=== PATIENT | female | born 1955 | race Two or more races ===

== ENCOUNTER → 2016-09-13 | Outpatient (CLI) | payer MEDICARE, OTHER ==
[~2016-09-13] MED LIST: ESTR1TAB36 PO; GLIM2TAB33 PO; HYDR200T PO; LEVO150T10 PO; METF-312 PO; METF-316 PO; PREG100C PO; TRAV0.00 EACHEYE
[2016-09-13 10:50] LABS: Basophils # (auto) 0 uL; Basophils % (auto) 0.7 % (0.0-2.0); DEFINITIVE VIEW TRANSMISSION; Eosinophils # (auto) 0.1 uL; Eosinophils % (auto) 1.5 % (0.0-7.0); Hematocrit 37.1 % (36.0-46.0); Hemoglobin 11.7 g/dL (12.2-16.2); Lymphocytes % (auto) 39.1 % (10.0-50.0); Mean Corpuscular Hemoglobin 21.8 pg (28.0-32.0); Mean Corpuscular Hgb Conc. 31.5 g/dL (32.0-36.0); Mean Corpuscular Volume 69.2 fL (80.0-100.0); Mean Platelet Volume 9.3 fL (7.4-10.4); Monocytes # (auto) 0.4 uL; Monocytes % (auto) 7.5 % (0.0-12.0); Neutrophils # (auto) 2.7 uL; Neutrophils % (auto) 51.2 % (37.0-80.0); Platelet Count (auto) 296 10^3/uL (140-450); White Blood Cell 5.2 10^3/uL (4.4-10.8)
[2016-09-13 11:00] LABS: Albumin 4.1 g/dL (3.4-5.0); BUN/Creatinine Ratio 16.9; Bilirubin, Total 0.6 mg/dL (0.2-1.0); Calcium 9.1 mg/dL (8.5-10.1); Potassium 3.8 mmol/L (3.5-5.1); Total Protein 7.8 g/dL (6.4-8.2)
[2016-09-13 11:11] LABS: Temperature: 21.6 C (20.0-25.0)
[2016-09-13 11:43] LABS: Anisocytosis Slight; Hypochromia Slight; Ovalocytes FEW; Platelet Estimate Adequate
== END | disposition home or self-care (01) ==
LOC: LAB 10:05
DX: E11.65 Type 2 diabetes mellitus with hyperglycemia (principal)
CPT/HCPCS: 36415; 80053; 82728; 82746; 83036; 83540; 83550; 85025; 85049

== ENCOUNTER → 2016-12-09 | Day surgery (SDC) | payer MEDICARE, MEDICAID ==
[2016-12-06 11:00] LABS: Basophils # (auto) 0 uL; DEFINITIVE VIEW TRANSMISSION; Eosinophils # (auto) 0.1 uL; Hematocrit 44.1 % (36.0-46.0); Lymphocytes # (auto) 1.9 uL; Monocytes # (auto) 0.4 uL; Neutrophils # (auto) 2.9 uL
[2016-12-06 11:15] LABS: INR 0.94 (0.9-1.15); Partial Thromboplastin Time 26.6 sec (22.64-33.71); Prothrombin Time 10.1 sec (9.37-12.3)
[2016-12-06 11:18] LABS: Basophils % (auto) 0.6 % (0.0-2.0); Eosinophils % (auto) 1.8 % (0.0-7.0); Lymphocytes % (auto) 35.5 % (10.0-50.0); Mean Corpuscular Volume 82.4 fL (80.0-100.0); Neutrophils % (auto) 54.1 % (37.0-80.0); Platelet Count (auto) 242 10^3/uL (140-450); White Blood Cell 5.4 10^3/uL (4.4-10.8)
[2016-12-06 11:32] LABS: Platelet Estimate Adequate
[2016-12-06 11:33] LABS: Anisocytosis Slight; Ovalocytes FEW
[~2016-12-09] VITALS: Ht 170.2 cm; Wt 88.0 kg
[~2016-12-09] MED LIST changes: +ALBUAER3 IN; +ASPI-231 PO; +ATOR10TA52 PO; -ESTR1TAB36 PO; +FOLI1TAB6 PO; +GABA300C8 PO; -GLIM2TAB33 PO; +INSUINJ49 SC; +LIDOCAINE VISCOUS 2% 15ML UD ONE; -METF-312 PO; -METF-316 PO; +METH25IN14 SUBCUT; +OMEP20CA5 PO; -PREG100C PO; +SODIUM CHLORIDE LOCK 10 ML ONE; +diphenhdrAMINE HCL 50 MG/1 ML VL ONE
[2016-12-09] MEDS: MIDAZOLAM HCL 5 MG/ML-1ML VIAL ONE ×3 (10:38→10:50)
[2016-12-09] MEDS: fentaNYL CITRATE 100 MCG/2 ML VL ONE ×3 (10:38→10:50)
[2016-12-09 11:50] VITALS: BP 139/76
== END | disposition home or self-care (01) ==
LOC: GI 09:06
PROVIDERS: ATTEND Internal Medicine Gastroenterology
DX: K63.5 Polyp of colon (principal); K64.8 Other hemorrhoids; K29.50 Unspecified chronic gastritis without bleeding; K44.9 Diaphragmatic hernia without obstruction or gangrene; J45.909 Unspecified asthma, uncomplicated; J40 Bronchitis, not specified as acute or chronic; E11.9 Type 2 diabetes mellitus without complications; F32.9 Major depressive disorder, single episode, unspecified; Z90.710 Acquired absence of both cervix and uterus; Z87.891 Personal history of nicotine dependence; Z90.49 Acquired absence of other specified parts of digestive tract
CPT/HCPCS: 36415; 43239; 45380; 85025; 85610; 85730; J2250

== ENCOUNTER → 2016-12-19 | Outpatient (CLI) | payer MEDICARE, MEDICAID ==
[~2016-12-19] MED LIST changes: -LIDOCAINE VISCOUS 2% 15ML UD ONE; -SODIUM CHLORIDE LOCK 10 ML ONE; -diphenhdrAMINE HCL 50 MG/1 ML VL ONE
[2016-12-19 07:39] LABS: Basophils # (auto) 0 uL; Basophils % (auto) 0.6 % (0.0-2.0); DEFINITIVE VIEW TRANSMISSION; Eosinophils # (auto) 0.1 uL; Eosinophils % (auto) 2.1 % (0.0-7.0); Hemoglobin 15.2 g/dL (12.2-16.2); Lymphocytes # (auto) 1.8 uL; Lymphocytes % (auto) 31.8 % (10.0-50.0); Mean Corpuscular Hemoglobin 28.2 pg (28.0-32.0); Mean Corpuscular Hgb Conc. 33.8 g/dL (32.0-36.0); Mean Corpuscular Volume 83.4 fL (80.0-100.0); Mean Platelet Volume 9.9 fL (7.4-10.4); Monocytes # (auto) 0.5 uL; Neutrophils # (auto) 3.3 uL; Neutrophils % (auto) 57.5 % (37.0-80.0); Platelet Count (auto) 229 10^3/uL (140-450); White Blood Cell 5.8 10^3/uL (4.4-10.8)
[2016-12-19 07:56] LABS: BUN/Creatinine Ratio 18.8; Bilirubin, Total 0.9 mg/dL (0.2-1.0); Calcium 8.9 mg/dL (8.5-10.1); Potassium 3.6 mmol/L (3.5-5.1); Total Protein 7.7 g/dL (6.4-8.2)
[2016-12-19 08:02] LABS: Red Cell Distribution Width 20.8 % (11.6-16.0)
[2016-12-19 08:18] LABS: Anisocytosis Slight; Platelet Estimate Adequate
== END | disposition home or self-care (01) ==
LOC: LAB 06:51
DX: D64.9 Anemia, unspecified (principal); E11.65 Type 2 diabetes mellitus with hyperglycemia; E03.9 Hypothyroidism, unspecified
CPT/HCPCS: 36415; 80053; 80061; 82043; 82570; 82728; 83036; 84439; 84443; 84481; 85025

== ENCOUNTER → 2017-01-02 | Outpatient (CLI) | payer MEDICARE | END | disposition home or self-care (01) | LOC: LAB 09:04 | PROVIDERS: ATTEND Internal Medicine Gastroenterology | DX: D12.6 Benign neoplasm of colon, unspecified (principal); Z80.0 Family history of malignant neoplasm of digestive organs ==

== ENCOUNTER → 2017-03-14 | Outpatient (CLI) | payer MEDICARE ==
[~2017-03-14] MED LIST changes: +GABA-497 PO; -GABA300C8 PO; -OMEP20CA5 PO; +OMEP20CA74 PO
[2017-03-14 08:46] LABS: Albumin 3.9 g/dL (3.4-5.0); BUN/Creatinine Ratio 12.9; Bilirubin, Total 0.8 mg/dL (0.2-1.0); Calcium 8.8 mg/dL (8.5-10.1); Total Protein 7.7 g/dL (6.4-8.2)
[2017-03-14 09:16] LABS: Urine Protein/Creatinine Ratio 0.19
== END | disposition home or self-care (01) ==
LOC: LAB 07:48
DX: E11.65 Type 2 diabetes mellitus with hyperglycemia (principal)
CPT/HCPCS: 36415; 80053; 82043; 82570; 83036; 84156

== ENCOUNTER → 2017-06-05 | Outpatient (CLI) | payer MEDICARE, MEDICAID ==
[2017-06-05 16:44] LABS: BUN/Creatinine Ratio 9.4; Calcium 8.5 mg/dL (8.5-10.1); Potassium 3.4 mmol/L (3.5-5.1)
[2017-06-05 17:06] LABS: Basophils # (auto) 0 uL; Basophils % (auto) 0.7 % (0.0-2.0); Eosinophils # (auto) 0.1 uL; Eosinophils % (auto) 0.9 % (0.0-7.0); Hematocrit 44.3 % (36.0-46.0); Hemoglobin 15.5 g/dL (12.2-16.2); Lymphocytes # (auto) 2.4 uL; Lymphocytes % (auto) 36.7 % (10.0-50.0); Mean Corpuscular Volume 88.7 fL (80.0-100.0); Mean Platelet Volume 9.1 fL (6.9-10.8); Monocytes # (auto) 0.5 uL; Monocytes % (auto) 7.4 % (0.0-12.0); Neutrophils # (auto) 3.6 uL; Neutrophils % (auto) 54.3 % (37.0-80.0); Nucleated Red Blood Cells % 0.1 %; Platelet Count (auto) 201 10^3/uL (140-450); White Blood Cell 6.6 10^3/uL (4.4-10.8)
== END | disposition home or self-care (01) ==
LOC: LAB 15:52
DX: K63.5 Polyp of colon (principal); E11.9 Type 2 diabetes mellitus without complications
CPT/HCPCS: 36415; 80048; 85025

== ENCOUNTER → 2017-06-20 | Outpatient (CLI) | payer MEDICARE, MEDICAID ==
[2017-06-20 08:00] LABS: Basophils # (auto) 0 uL; Basophils % (auto) 0.8 % (0.0-2.0); Eosinophils # (auto) 0.1 uL; Eosinophils % (auto) 1.6 % (0.0-7.0); Hematocrit 45.4 % (36.0-46.0); Hemoglobin 15.8 g/dL (12.2-16.2); Lymphocytes % (auto) 33.5 % (10.0-50.0); Mean Corpuscular Hgb Conc. 34.7 g/dL (32.0-36.0); Mean Corpuscular Volume 89.3 fL (80.0-100.0); Mean Platelet Volume 8.9 fL (6.9-10.8); Monocytes # (auto) 0.4 uL; Monocytes % (auto) 7.3 % (0.0-12.0); Neutrophils # (auto) 3.3 uL; Neutrophils % (auto) 56.8 % (37.0-80.0); Nucleated Red Blood Cells % 0.1 %; Platelet Count (auto) 194 10^3/uL (140-450); White Blood Cell 5.9 10^3/uL (4.4-10.8)
[2017-06-20 08:28] LABS: BUN/Creatinine Ratio 13.2; Bilirubin, Total 1.4 mg/dL (0.2-1.0); Calcium 8.7 mg/dL (8.5-10.1); Potassium 3.9 mmol/L (3.5-5.1)
== END | disposition home or self-care (01) ==
LOC: LAB 07:27
DX: E11.65 Type 2 diabetes mellitus with hyperglycemia (principal); E03.9 Hypothyroidism, unspecified; D64.9 Anemia, unspecified
CPT/HCPCS: 36415; 80053; 80061; 82043; 82570; 82728; 83036; 84439; 84443; 85025

== ENCOUNTER → 2017-10-16 | Outpatient (CLI) | payer MEDICARE, MEDICAID ==
[~2017-10-16] MED LIST changes: -GABA-497 PO; +GABA300C10 PO; +METH2.5T3 PO
[2017-10-16 12:30] LABS: Basophils # (auto) 0.1 uL; Eosinophils # (auto) 0.1 uL; Eosinophils % (auto) 1.9 % (0.0-7.0); Hematocrit 45.8 % (36.0-46.0); Hemoglobin 15.6 g/dL (12.2-16.2); Lymphocytes # (auto) 2.6 uL; Lymphocytes % (auto) 34.3 % (10.0-50.0); Mean Corpuscular Hemoglobin 29.9 pg (28.0-32.0); Mean Corpuscular Hgb Conc. 33.9 g/dL (32.0-36.0); Monocytes # (auto) 0.5 uL; Monocytes % (auto) 7.1 % (0.0-12.0); Neutrophils # (auto) 4.2 uL; Neutrophils % (auto) 55.7 % (37.0-80.0); Nucleated Red Blood Cells % 0.1 %; Platelet Count (auto) 247 10^3/uL (140-450); Red Blood Cells 5.21 10^6/uL (4.0-5.20); Red Cell Distribution Width 14.9 % (11.8-14.3); White Blood Cell 7.6 10^3/uL (4.4-10.8)
== END | disposition home or self-care (01) ==
LOC: LAB 12:18
PROVIDERS: ATTEND Internal Medicine
DX: E11.9 Type 2 diabetes mellitus without complications (principal); M06.9 Rheumatoid arthritis, unspecified
CPT/HCPCS: 36415; 85025

== ENCOUNTER 2017-11-08 12:00 | Inpatient (IN) | payer MEDICARE, MEDICAID ==
[~2017-11-08] VITALS: Ht 170.2 cm; Wt 82.6 kg
[~2017-11-08 12:00] MED LIST changes: -METH2.5T3 PO
[2017-11-08 12:29] LABS: Basophils # (auto) 0 uL; Basophils % (auto) 0.4 % (0.0-2.0); Eosinophils # (auto) 0.1 uL; Eosinophils % (auto) 0.8 % (0.0-7.0); Hematocrit 50.8 % (36.0-46.0); Hemoglobin 17.4 g/dL (12.2-16.2); Lymphocytes # (auto) 1.6 uL; Lymphocytes % (auto) 13.8 % (10.0-50.0); Mean Corpuscular Hemoglobin 30.3 pg (28.0-32.0); Mean Corpuscular Hgb Conc. 34.2 g/dL (32.0-36.0); Mean Corpuscular Volume 88.6 fL (80.0-100.0); Monocytes # (auto) 0.4 uL; Monocytes % (auto) 3.5 % (0.0-12.0); Neutrophils # (auto) 9.4 uL; Neutrophils % (auto) 81.5 % (37.0-80.0); Nucleated Red Blood Cells % 0.1 %; Platelet Count (auto) 254 10^3/uL (140-450); Red Blood Cells 5.73 10^6/uL (4.0-5.20); Red Cell Distribution Width 15.2 % (11.8-14.3); White Blood Cell 11.5 10^3/uL (4.4-10.8)
[2017-11-08 12:51] LABS: INR 0.93 (0.9-1.15); Partial Thromboplastin Time 25.5 sec (22.64-33.71); Prothrombin Time 10.1 sec (9.37-12.3)
[2017-11-08 12:55] LABS: Alanine Aminotransferase 42 U/L (13-56); Albumin 4.3 g/dL (3.4-5.0); Alkaline Phosphatase 114 U/L (45-117); Anion Gap 12 (5-15); Aspartate Aminotransferase 35 U/L (15-37); BUN/Creatinine Ratio 11.5; Bilirubin, Total 1.6 mg/dL (0.2-1.0); Blood Urea Nitrogen 10 mg/dL (7-18); Calcium 9.3 mg/dL (8.5-10.1); Carbon Dioxide 20 mmol/L (21-32); Chloride 104 mmol/L (98-107); GFR African American 84 mL/min; GFR Non-African American 70 mL/min; Glucose 151 mg/dL (74-106); Magnesium 2.3 mg/dL (1.6-2.6); Potassium 4.1 mmol/L (3.5-5.1); Sodium 136 mmol/L (136-145); Total Protein 9.4 g/dL (6.4-8.2)
[2017-11-08 12:59] LABS: Amylase 94 U/L (25-115); Lipase 297 U/L (73-393)
[2017-11-08 14:16] LABS: Urine Bacteria FEW /hpf (None Seen); Urine Blood Negative /uL (Negative); Urine Hyaline Cast MOD /lpf (0 - 2); Urine Mucus FEW (None Seen); Urine Specific Gravity 1.012 (1.001-1.035); Urine WBC 14 /hpf (0 - 5)
[2017-11-08] MEDS ORDERED: LEVOFLOXACIN 500MG 100 ML IV ONE (16:30)
[2017-11-08] MEDS ORDERED: ACETAMINOPHEN 325 MG TAB PO PRN (16:45)
[2017-11-08] MEDS ORDERED: TEMAZEPAM 15 MG CAP PO PRN (16:45)
[2017-11-08] MEDS ORDERED: HYDROcodone-ACET 5/325MG TAB PO PRN (16:45)
[2017-11-08] MEDS ORDERED: MORPHINE SULFATE 4 MG/ML SYR/VIAL IV PRN ×2 (16:45)
[2017-11-08] MEDS ORDERED: DEXTROSE (50%) 50ML SYRG IV PRN (16:45)
[2017-11-08] MEDS ORDERED: ONDANSETRON HCL 4 MG/2 ML VIAL IV PRN (16:45)
[2017-11-08] MEDS ORDERED: FAMOTIDINE (10MG/ML) 2ML VL IV ONE (16:45)
[2017-11-08] MEDS ORDERED: NITROGLYCERIN 0.4 MG SL TAB SL PRN (16:45)
[2017-11-08] MEDS ORDERED: metroNIDAZOLE 500MG/100ML 100 ML IV ONE (17:00)
[2017-11-08] MEDS: ACCU-CHEK COMFORT CURVE STRIP VI SCH ×2 (17:26→23:12)
[2017-11-08] MEDS: SODIUM CHLORIDE 0.9% 1,000 ML IV SCH (17:48)
[2017-11-08] MEDS: InsuLIN REG 1unit/0.01ml Soln (100units/ml) SC SCH ×2 (18:00→22:00)
[2017-11-08] MEDS: INSULIN 70/30 1unit/0.01ml Susp (100units/ml) SC SCH (20:42)
[2017-11-08 22:00] VITALS: BP 116/68
[2017-11-08] MEDS ORDERED: ATORVASTATIN 20 MG TAB PO SCH (22:00)
[2017-11-08] MEDS ORDERED: AMITRIPTYLINE HCL 25 MG TAB PO SCH (22:00)
[2017-11-08] MEDS ORDERED: HYDROXYCHLOROQUINE SULFATE 200 MG TAB PO SCH (22:00)
[2017-11-08] MEDS: metroNIDAZOLE 500MG/100ML 100 ML IV SCH (23:12)
[2017-11-08] MEDS: GABAPENTIN 300 MG CAP PO SCH (23:18)
[2017-11-09] MEDS: SODIUM CHLORIDE 0.9% 1,000 ML IV SCH ×2 (01:28→09:25)
[2017-11-09 05:00] VITALS: BP 109/64
[2017-11-09] MEDS: GABAPENTIN 300 MG CAP PO SCH (05:49)
[2017-11-09] MEDS: metroNIDAZOLE 500MG/100ML 100 ML IV SCH (05:49)
[2017-11-09] MEDS: ACCU-CHEK COMFORT CURVE STRIP VI SCH ×2 (06:09→11:30)
[2017-11-09] MEDS: InsuLIN REG 1unit/0.01ml Soln (100units/ml) SC SCH ×2 (06:09→11:30)
[2017-11-09 06:21] LABS: Basophils # (auto) 0 uL; Basophils % (auto) 0.5 % (0.0-2.0); Eosinophils # (auto) 0.1 uL; Eosinophils % (auto) 1.3 % (0.0-7.0); Hematocrit 43.9 % (36.0-46.0); Hemoglobin 14.9 g/dL (12.2-16.2); Lymphocytes # (auto) 1.2 uL; Lymphocytes % (auto) 19.1 % (10.0-50.0); Mean Corpuscular Hemoglobin 30.3 pg (28.0-32.0); Mean Corpuscular Hgb Conc. 33.9 g/dL (32.0-36.0); Mean Corpuscular Volume 89.4 fL (80.0-100.0); Monocytes # (auto) 0.4 uL; Monocytes % (auto) 6.5 % (0.0-12.0); Neutrophils # (auto) 4.7 uL; Neutrophils % (auto) 72.6 % (37.0-80.0); Nucleated Red Blood Cells % 0.1 %; Platelet Count (auto) 194 10^3/uL (140-450); Red Blood Cells 4.91 10^6/uL (4.0-5.20); Red Cell Distribution Width 14.9 % (11.8-14.3); White Blood Cell 6.5 10^3/uL (4.4-10.8)
[2017-11-09 06:43] LABS: Albumin 3.5 g/dL (3.4-5.0); BUN/Creatinine Ratio 14.9; Calcium 8.4 mg/dL (8.5-10.1); Potassium 3.6 mmol/L (3.5-5.1); Total Protein 7.4 g/dL (6.4-8.2)
[2017-11-09] MEDS ORDERED: LEVOTHYROXINE SODIUM 100 MCG TAB PO SCH (07:00)
[2017-11-09 07:38] VITALS: BP 107/57
[2017-11-09] MEDS: INSULIN 70/30 1unit/0.01ml Susp (100units/ml) SC SCH (08:07)
[2017-11-09] MEDS ORDERED: PANTOPRAZOLE 40 MG/10 ML VIAL IV SCH (10:00)
[2017-11-09] MEDS ORDERED: ASPirin-EC 81 mg tab PO SCH (10:00)
[2017-11-09] MEDS ORDERED: TRAVATAN Z 0.004% OPHTHALMIC SOLN EACHEYE SCH (10:00)
[2017-11-09] MEDS ORDERED: HYDROXYCHLOROQUINE SULFATE 200 MG TAB PO SCH (10:00)
[2017-11-09] MEDS ORDERED: MULTIPLE VITAMIN TAB PO SCH (10:00)
[2017-11-09] MEDS ORDERED: LEVOFLOXACIN 500MG 100 ML IV SCH (10:00)
[2017-11-09] MEDS ORDERED: FAMOTIDINE (10MG/ML) 2ML VL IV SCH (10:00)
[2017-11-09] MEDS ORDERED: FOLIC ACID 1 MG TAB PO SCH (10:00)
[2017-11-09] MEDS ORDERED: CALCIUM W/VIT D (600MG/400IU) TAB PO SCH (10:00)
[2017-11-09 11:33] VITALS: BP 113/64
[2017-11-09 15:49] VITALS: BP 113/64
[2017-11-09 16:29] VITALS: BP 118/68
[2017-11-14] MEDS ORDERED: METHOTREXATE 2.5 MG TAB PO SCH (10:00)
[2017-12-05] MEDS ORDERED: TRAV0.00 EACHEYE (12:52)
[2017-12-05] MEDS ORDERED: METH2.5T3 PO (12:52)
== END 2017-11-09 16:40 | disposition home or self-care (01) | DRG 690 ==
LOC: ER 12:00 → TELE 12:01 → TELE-EAST 18:46
PROVIDERS: ADMIT Internal Medicine; ATTEND Internal Medicine
DX: N39.0 Urinary tract infection, site not specified (principal); E11.21 Type 2 diabetes mellitus with diabetic nephropathy; D75.1 Secondary polycythemia; K76.0 Fatty (change of) liver, not elsewhere classified; E11.22 Type 2 diabetes mellitus with diabetic chronic kidney disease; E86.0 Dehydration; E03.9 Hypothyroidism, unspecified; I12.9 Hypertensive chronic kidney disease with stage 1 through stage 4 chronic kidney disease, or unspecified chronic kidney disease; D35.02 Benign neoplasm of left adrenal gland; J45.909 Unspecified asthma, uncomplicated; K08.89 Other specified disorders of teeth and supporting structures; M06.9 Rheumatoid arthritis, unspecified; N18.2 Chronic kidney disease, stage 2 (mild); N99.3 Prolapse of vaginal vault after hysterectomy; Z80.0 Family history of malignant neoplasm of digestive organs; Z82.49 Family history of ischemic heart disease and other diseases of the circulatory system; Z85.038 Personal history of other malignant neoplasm of large intestine; Z87.891 Personal history of nicotine dependence; Z90.49 Acquired absence of other specified parts of digestive tract; Z93.2 Ileostomy status; Z93.3 Colostomy status; Z88.0 Allergy status to penicillin; Z88.2 Allergy status to sulfonamides; Z88.8 Allergy status to other drugs, medicaments and biological substances; Z88.5 Allergy status to narcotic agent; G43.909 Migraine, unspecified, not intractable, without status migrainosus
CPT/HCPCS: 36415; 70450; 71045; 74176; 80053; 81001; 82150; 82962; 83036; 83605; 83690; 83735; 84443; 84484; 85025; 85610; 85730; 87040; 87086; 93005; 93306; 96365; 96375; C9113; J1815; J1956; J2405; J3490

== ENCOUNTER 2017-12-11 06:09 | Day surgery (SDC) | payer MEDICARE, MEDICAID ==
[2017-12-05 11:57] LABS: Basophils # (auto) 0 uL; Basophils % (auto) 0.9 % (0.0-2.0); Eosinophils # (auto) 0.1 uL; Eosinophils % (auto) 1.2 % (0.0-7.0); Hematocrit 43.8 % (36.0-46.0); Lymphocytes # (auto) 1.8 uL; Lymphocytes % (auto) 33.3 % (10.0-50.0); Mean Corpuscular Hemoglobin 30.3 pg (28.0-32.0); Mean Corpuscular Hgb Conc. 34.2 g/dL (32.0-36.0); Mean Corpuscular Volume 88.8 fL (80.0-100.0); Monocytes # (auto) 0.4 uL; Monocytes % (auto) 7.2 % (0.0-12.0); Neutrophils # (auto) 3.2 uL; Neutrophils % (auto) 57.4 % (37.0-80.0); Nucleated Red Blood Cells % 0.1 %; Platelet Count (auto) 208 10^3/uL (140-450); Red Blood Cells 4.93 10^6/uL (4.0-5.20); Red Cell Distribution Width 14.9 % (11.8-14.3); White Blood Cell 5.5 10^3/uL (4.4-10.8)
[2017-12-05 12:06] LABS: INR 0.95 (0.9-1.15); Partial Thromboplastin Time 26.2 sec (22.64-33.71); Prothrombin Time 10.3 sec (9.37-12.3); Urine Bacteria NONE SEEN /hpf (None Seen); Urine Blood Negative /uL (Negative); Urine WBC 1 /hpf (0 - 5)
[2017-12-05 12:15] LABS: BUN/Creatinine Ratio 15.2; Calcium 8.9 mg/dL (8.5-10.1); Potassium 3.9 mmol/L (3.5-5.1)
[2017-12-05 12:22] LABS: Bilirubin, Total 1.2 mg/dL (0.2-1.0); Total Protein 7.9 g/dL (6.4-8.2)
[~2017-12-11] VITALS: Ht 170.2 cm; Wt 84.4 kg
[~2017-12-11 06:09] MED LIST changes: +METH2.5T3 PO; -METH25IN14 SUBCUT
[2017-12-11] MEDS ORDERED: LIDOCAINE W/ EPINEPHRINE 2% INJ 20ML VIAL ONE (09:03)
[2017-12-11] MEDS ORDERED: COCAINE HCL 4% TOP SOL 4ML TOP ONE (09:04)
[2017-12-11] MEDS ORDERED: PROPOFOL 10 MG/ML 20 ML IV ONE (09:08)
[2017-12-11] MEDS ORDERED: MIDAZOLAM HCL 1MG/1ML-2 ML VIAL ONE (09:08)
[2017-12-11] MEDS ORDERED: MEPERIDINE HCL (50 MG/ML) 1 ML VIAL ONE (09:08)
[2017-12-11] MEDS ORDERED: ONDANSETRON HCL 4 MG/2 ML VIAL ONE (09:08)
[2017-12-11] MEDS ORDERED: fentaNYL CITRATE 100 MCG/2 ML VL ONE (09:08)
[2017-12-11] MEDS ORDERED: ROCURONIUM 10MG/ML 10ML VIAL IV ONE (09:08)
[2017-12-11] MEDS ORDERED: SUCCINYLCHOLINE CHLORIDE 20 MG/ML 10ML VIAL IV ONE (09:20)
[2017-12-11] MEDS ORDERED: LEVOFLOXACIN 500MG 0 ML IV ONE (09:20)
[2017-12-11] MEDS ORDERED: GLYCOPYRROLATE 0.2 MG/ML 1ML VIAL ONE (09:52)
[2017-12-11] MEDS ORDERED: NEOSTIGMINE 1 MG/ML INJ (10mg/10ML VIAL) ONE (09:52)
[2017-12-11] MEDS ORDERED: METOCLOPRAMIDE HCL 5MG/ml INJ 2ml VIAL IV ONE (10:15)
[2017-12-11] MEDS ORDERED: ACCU-CHEK COMFORT CURVE STRIP VI ONE (10:15)
[2017-12-11] MEDS ORDERED: MORPHINE SULFATE 4 MG/ML SYR/VIAL IV PRN (10:15)
[2017-12-11] MEDS ORDERED: MORPHINE SULFATE 8mg/ml INJ SDV IV PRN (11:00)
[2017-12-11 11:46] VITALS: BP 138/53
== END 2017-12-11 10:46 | disposition home or self-care (01) ==
LOC: SUR 06:09
PROVIDERS: ATTEND Otolaryngology
DX: J32.2 Chronic ethmoidal sinusitis (principal); Z88.5 Allergy status to narcotic agent; Z88.0 Allergy status to penicillin; Z88.2 Allergy status to sulfonamides; Z88.1 Allergy status to other antibiotic agents; E66.9 Obesity, unspecified; J45.909 Unspecified asthma, uncomplicated; Z90.710 Acquired absence of both cervix and uterus; M06.9 Rheumatoid arthritis, unspecified; M19.90 Unspecified osteoarthritis, unspecified site; F32.9 Major depressive disorder, single episode, unspecified; Z87.891 Personal history of nicotine dependence; Z90.49 Acquired absence of other specified parts of digestive tract; E89.0 Postprocedural hypothyroidism; D64.9 Anemia, unspecified; I49.9 Cardiac arrhythmia, unspecified; E11.22 Type 2 diabetes mellitus with diabetic chronic kidney disease; I12.9 Hypertensive chronic kidney disease with stage 1 through stage 4 chronic kidney disease, or unspecified chronic kidney disease; N18.2 Chronic kidney disease, stage 2 (mild)
CPT/HCPCS: 31254; 31267; 36415; 80053; 81001; 82962; 85025; 85610; 85730; 88305; 88312; 88313; J0330; J2175; J2250; J2270; J2405; J2704; J3010; J1956

== ENCOUNTER → 2018-07-02 | Outpatient (CLI) | payer MEDICARE, MEDICAID ==
[~2018-07-02] MED LIST changes: +HYDR-4441 PO; -HYDR200T PO
[2018-07-02 08:37] LABS: Urine Bacteria FEW /hpf (None Seen); Urine Blood Negative /uL (Negative); Urine Mucus FEW (None Seen); Urine Specific Gravity 1.011 (1.001-1.035); Urine WBC 3 /hpf (0 - 5)
[2018-07-02 09:00] LABS: Calcium 8.6 mg/dL (8.5-10.1); Potassium 3.7 mmol/L (3.5-5.1)
[2018-07-02 09:07] LABS: Albumin 3.8 g/dL (3.4-5.0); BUN/Creatinine Ratio 11.4; Bilirubin, Total 1.1 mg/dL (0.2-1.0); CRP High Sensitivity 0.04 mg/dL (< 0.3); Total Protein 7.9 g/dL (6.4-8.2)
[2018-07-02 09:42] LABS: Free T4 (Free Thyroxine) 1.09 ng/dL (0.89-1.76)
[2018-07-02 10:17] LABS: Basophils # (auto) 0 uL; Basophils % (auto) 0.9 % (0.0-2.0); Eosinophils # (auto) 0.1 uL; Eosinophils % (auto) 1.3 % (0.0-7.0); Hematocrit 45.6 % (36.0-46.0); Hemoglobin 15.8 g/dL (12.2-16.2); Lymphocytes # (auto) 1.6 uL; Lymphocytes % (auto) 29.5 % (10.0-50.0); Mean Corpuscular Hemoglobin 32.2 pg (28.0-32.0); Mean Corpuscular Hgb Conc. 34.6 g/dL (32.0-36.0); Monocytes # (auto) 0.4 uL; Monocytes % (auto) 8.3 % (0.0-12.0); Neutrophils # (auto) 3.2 uL; Nucleated Red Blood Cells % 0.1 %; Platelet Count (auto) 193 10^3/uL (140-450); Red Blood Cells 4.91 10^6/uL (4.0-5.20); Red Cell Distribution Width 14.1 % (11.8-14.3); White Blood Cell 5.4 10^3/uL (4.4-10.8)
== END | disposition home or self-care (01) ==
LOC: LAB 07:59
PROVIDERS: ATTEND Internal Medicine
DX: E11.65 Type 2 diabetes mellitus with hyperglycemia (principal); M06.9 Rheumatoid arthritis, unspecified; E11.40 Type 2 diabetes mellitus with diabetic neuropathy, unspecified; I10 Essential (primary) hypertension
CPT/HCPCS: 36415; 80053; 80061; 81001; 82043; 82607; 83036; 84439; 84443; 85025; 85652; 86141

== ENCOUNTER → 2018-12-07 | Outpatient (CLI) | payer MEDICARE, MEDICAID ==
[2018-12-07 11:41] LABS: Basophils # (auto) 0.1 uL; Basophils % (auto) 0.9 % (0.0-2.0); Eosinophils # (auto) 0.1 uL; Eosinophils % (auto) 1.1 % (0.0-7.0); Hematocrit 45.8 % (36.0-46.0); Hemoglobin 15.6 g/dL (12.2-16.2); Lymphocytes # (auto) 1.8 uL; Lymphocytes % (auto) 24.2 % (10.0-50.0); Mean Corpuscular Hemoglobin 31.9 pg (28.0-32.0); Mean Corpuscular Hgb Conc. 34.1 g/dL (32.0-36.0); Mean Corpuscular Volume 93.6 fL (80.0-100.0); Monocytes # (auto) 0.6 uL; Monocytes % (auto) 7.5 % (0.0-12.0); Neutrophils % (auto) 66.3 % (37.0-80.0); Nucleated Red Blood Cells % 0.1 %; Platelet Count (auto) 214 10^3/uL (140-450); Red Blood Cells 4.89 10^6/uL (4.0-5.20); Red Cell Distribution Width 14.2 % (11.8-14.3); White Blood Cell 7.5 10^3/uL (4.4-10.8)
[2018-12-07 11:47] LABS: Urine Bacteria NONE SEEN /hpf (None Seen); Urine Blood Negative /uL (Negative); Urine Specific Gravity 1.008 (1.001-1.035); Urine WBC 1 /hpf (0 - 5)
[2018-12-07 12:08] LABS: INR 0.93 (0.9-1.15)
[2018-12-07 13:14] LABS: Potassium 3.9 mmol/L (3.5-5.1)
[2018-12-07 13:22] LABS: Albumin 4.1 g/dL (3.4-5.0); BUN/Creatinine Ratio 13.6; Bilirubin, Total 1.4 mg/dL (0.2-1.0); Calcium 8.8 mg/dL (8.5-10.1); Total Protein 8.1 g/dL (6.4-8.2)
== END | disposition home or self-care (01) ==
LOC: LAB 11:18
PROVIDERS: ATTEND Internal Medicine
DX: Z01.818 Encounter for other preprocedural examination (principal); I10 Essential (primary) hypertension; J45.909 Unspecified asthma, uncomplicated; M06.9 Rheumatoid arthritis, unspecified; Z98.890 Other specified postprocedural states
CPT/HCPCS: 36415; 80053; 81001; 84443; 85025; 85610; 85652

== ENCOUNTER → 2019-03-03 | Outpatient (CLI) | payer MEDICARE, MEDICAID | END | disposition home or self-care (01) | LOC: LAB 16:07 | PROVIDERS: ATTEND Internal Medicine | DX: N39.0 Urinary tract infection, site not specified (principal); E11.9 Type 2 diabetes mellitus without complications; R06.00 Dyspnea, unspecified | CPT/HCPCS: 87086; 87088; 87186 ==

== ENCOUNTER → 2019-03-12 | Outpatient (CLI) | payer MEDICARE, MEDICAID ==
[2019-03-12 14:00] LABS: Basophils # (auto) 0.1 uL; Basophils % (auto) 0.6 % (0.0-2.0); Eosinophils # (auto) 0 uL; Eosinophils % (auto) 0.2 % (0.0-7.0); Hematocrit 46.1 % (36.0-46.0); Hemoglobin 15.5 g/dL (12.2-16.2); Lymphocytes # (auto) 1.9 uL; Lymphocytes % (auto) 22.9 % (10.0-50.0); Mean Corpuscular Hemoglobin 31.3 pg (28.0-32.0); Mean Corpuscular Hgb Conc. 33.7 g/dL (32.0-36.0); Monocytes # (auto) 0.6 uL; Monocytes % (auto) 7.6 % (0.0-12.0); Neutrophils # (auto) 5.8 uL; Neutrophils % (auto) 68.7 % (37.0-80.0); Nucleated Red Blood Cells % 0.1 %; Platelet Count (auto) 190 10^3/uL (140-450); Red Blood Cells 4.95 10^6/uL (4.0-5.20); Red Cell Distribution Width 14.3 % (11.8-14.3); White Blood Cell 8.5 10^3/uL (4.4-10.8)
[2019-03-12 14:07] LABS: Potassium 3.4 mmol/L (3.5-5.1)
[2019-03-12 14:14] LABS: Albumin 3.7 g/dL (3.4-5.0); Bilirubin, Total 1.6 mg/dL (0.2-1.0); Calcium 8.6 mg/dL (8.5-10.1); Total Protein 7.7 g/dL (6.4-8.2)
[2019-03-12 14:31] LABS: Urine Bacteria FEW /hpf (None Seen); Urine Blood TRACE /uL (Negative); Urine Specific Gravity 1.003 (1.001-1.035); Urine WBC 199 /hpf (0 - 5)
== END | disposition home or self-care (01) ==
LOC: LAB 13:06
PROVIDERS: ATTEND Internal Medicine
DX: N39.0 Urinary tract infection, site not specified (principal)
CPT/HCPCS: 36415; 80053; 81001; 85025; 87086; 87088; 87186

== ENCOUNTER 2019-03-17 12:33 | Emergency (ER) | payer MEDICARE, MEDICAID ==
[~2019-03-17] VITALS: Ht 170.2 cm; Wt 85.7 kg
[2019-03-17 13:52] VITALS: BP 155/70
[2019-03-17 14:13] LABS: Urine Bacteria NONE SEEN /hpf (None Seen); Urine Blood Negative /uL (Negative); Urine Specific Gravity 1.004 (1.001-1.035); Urine WBC 1 /hpf (0 - 5)
== END 2019-03-17 15:46 | disposition home or self-care (01) ==
LOC: ER 12:33
DX: N39.0 Urinary tract infection, site not specified (principal); M51.36 Other intervertebral disc degeneration, lumbar region; J45.909 Unspecified asthma, uncomplicated; I10 Essential (primary) hypertension; Z87.891 Personal history of nicotine dependence; Z86.39 Personal history of other endocrine, nutritional and metabolic disease; Z88.0 Allergy status to penicillin; Z88.2 Allergy status to sulfonamides; Z88.6 Allergy status to analgesic agent; Z79.82 Long term (current) use of aspirin; Z79.4 Long term (current) use of insulin; Z79.899 Other long term (current) drug therapy
CPT/HCPCS: 74176; 81001

== ENCOUNTER → 2019-04-01 | Outpatient (CLI) | payer MEDICARE, MEDICAID ==
[~2019-04-01] MED LIST changes: +HYDR-4188 PO; -HYDR-4441 PO
[2019-04-01 14:10] LABS: Urine Bacteria MANY /hpf (None Seen); Urine Blood Negative /uL (Negative); Urine Mucus FEW (None Seen); Urine Specific Gravity 1.015 (1.001-1.035); Urine WBC 463 /hpf (0 - 5); Urine WBC Clumps PRESENT /hpf (None Seen)
== END | disposition home or self-care (01) ==
LOC: LAB 13:39
PROVIDERS: ATTEND Urology
DX: N39.0 Urinary tract infection, site not specified (principal)
CPT/HCPCS: 81001; 87086; 87088; 87186

== ENCOUNTER 2019-05-31 10:00 | Day surgery (SDC) | payer MEDICARE, MEDICAID ==
[2019-05-27 11:00] LABS: Basophils # (auto) 0.1 uL; Basophils % (auto) 1.1 % (0.0-2.0); Eosinophils # (auto) 0.1 uL; Eosinophils % (auto) 0.9 % (0.0-7.0); Hematocrit 43.6 % (36.0-46.0); Hemoglobin 15.3 g/dL (12.2-16.2); Lymphocytes # (auto) 1.7 uL; Lymphocytes % (auto) 26.5 % (10.0-50.0); Mean Corpuscular Hemoglobin 33.1 pg (28.0-32.0); Mean Corpuscular Volume 94.5 fL (80.0-100.0); Monocytes # (auto) 0.5 uL; Neutrophils # (auto) 4.2 uL; Neutrophils % (auto) 64.5 % (37.0-80.0); Nucleated Red Blood Cells % 0.1 %; Platelet Count (auto) 191 10^3/uL (140-450); Red Blood Cells 4.61 10^6/uL (4.0-5.20); Red Cell Distribution Width 14.5 % (11.8-14.3); White Blood Cell 6.6 10^3/uL (4.4-10.8)
[2019-05-27 11:11] LABS: INR 0.94 (0.9-1.15)
[2019-05-27 11:15] LABS: Urine Bacteria MOD /hpf (None Seen); Urine Blood Negative /uL (Negative); Urine Hyaline Cast FEW /lpf (0 - 2); Urine Mucus FEW (None Seen); Urine Specific Gravity 1.011 (1.001-1.035); Urine WBC 54 /hpf (0 - 5); Urine WBC Clumps PRESENT /hpf (None Seen)
[2019-05-27 11:34] LABS: Potassium 3.4 mmol/L (3.5-5.1)
[2019-05-27 11:42] LABS: Albumin 3.9 g/dL (3.4-5.0); BUN/Creatinine Ratio 12.3; Bilirubin, Total 1.2 mg/dL (0.2-1.0); Calcium 8.7 mg/dL (8.5-10.1); Total Protein 7.5 g/dL (6.4-8.2)
[~2019-05-31] VITALS: Ht 170.2 cm; Wt 88.0 kg
[~2019-05-31 10:00] MED LIST changes: -ALBUAER3 IN; +METH1INJ18 SC; -METH2.5T3 PO
[2019-05-31] MEDS ORDERED: LIDOCAINE W/ EPINEPHRINE 1% 20ML VIAL ONE (11:27)
[2019-05-31] MEDS ORDERED: CONJ ESTROGENS 0.625MG/GM VAG CRM 30GM PV ONE (11:42)
[2019-05-31] MEDS ORDERED: ONDANSETRON HCL 4 MG/2 ML VIAL IV PRN (12:00)
[2019-05-31] MEDS ORDERED: MORPHINE SULFATE 4 MG/ML SYR/VIAL IV PRN (12:00)
[2019-05-31] MEDS ORDERED: KETOROLAC TROMETH 30 MG/ML 1ML VIAL IV ONE (12:00)
[2019-05-31] MEDS ORDERED: ACCU-CHEK COMFORT CURVE STRIP VI ONE (12:00)
[2019-05-31] MEDS ORDERED: ePHEDrine SULFATE 50 MG/ML AMP IV PRN (12:00)
[2019-05-31] MEDS ORDERED: MIDAZOLAM HCL 1MG/1ML-2 ML VIAL IV PRN (12:00)
[2019-05-31] MEDS ORDERED: LABETALOL HCL 5 MG/ML 4ML SYRINGE IV PRN (12:00)
[2019-05-31] MEDS ORDERED: MEPERIDINE HCL (25 MG/ML) 1ML VIAL ONE (12:02)
[2019-05-31] MEDS ORDERED: fentaNYL CITRATE 100 MCG/2 ML VL ONE (12:02)
[2019-05-31] MEDS ORDERED: MIDAZOLAM HCL 1MG/1ML-2 ML VIAL ONE (12:03)
[2019-05-31] MEDS ORDERED: SUCCINYLCHOLINE CHLORIDE 20 MG/ML 10ML VIAL IV ONE (12:04)
[2019-05-31] MEDS ORDERED: PHENYLEPHRINE HCL 10 MG/ML VL IV ONE (12:04)
[2019-05-31] MEDS ORDERED: CIPROFLOXACIN 400MG/200ML 200 ML IV ONE (12:04)
[2019-05-31] MEDS ORDERED: DexAMETHasone SOD PHOS 10MG/1ML VIAL INJ ONE (12:39)
[2019-05-31] MEDS ORDERED: PROPOFOL 10 MG/ML 20 ML IV ONE (12:39)
[2019-05-31] MEDS: HYDROmorphone HCL 2 MG/ML VL IV PRN ×3 (13:45→14:05)
[2019-05-31 14:52] VITALS: BP 134/59
== END 2019-05-31 14:57 | disposition home or self-care (01) ==
LOC: SUR 10:00
PROVIDERS: ATTEND Urology
DX: N81.2 Incomplete uterovaginal prolapse (principal); E11.22 Type 2 diabetes mellitus with diabetic chronic kidney disease; I12.9 Hypertensive chronic kidney disease with stage 1 through stage 4 chronic kidney disease, or unspecified chronic kidney disease; N18.3 Chronic kidney disease, stage 3 (moderate); E11.40 Type 2 diabetes mellitus with diabetic neuropathy, unspecified; E11.39 Type 2 diabetes mellitus with other diabetic ophthalmic complication; H42 Glaucoma in diseases classified elsewhere; E11.42 Type 2 diabetes mellitus with diabetic polyneuropathy; K21.9 Gastro-esophageal reflux disease without esophagitis; E03.9 Hypothyroidism, unspecified; E66.9 Obesity, unspecified; F32.9 Major depressive disorder, single episode, unspecified; M06.9 Rheumatoid arthritis, unspecified; E07.9 Disorder of thyroid, unspecified; M19.90 Unspecified osteoarthritis, unspecified site; Z68.30 Body mass index [BMI] 30.0-30.9, adult; Z90.710 Acquired absence of both cervix and uterus; Z79.82 Long term (current) use of aspirin; Z79.899 Other long term (current) drug therapy; Z79.4 Long term (current) use of insulin; Z87.891 Personal history of nicotine dependence; Z88.0 Allergy status to penicillin; Z88.1 Allergy status to other antibiotic agents; Z88.2 Allergy status to sulfonamides; Z88.5 Allergy status to narcotic agent; Z88.8 Allergy status to other drugs, medicaments and biological substances
CPT/HCPCS: 36415; 57240; 80053; 81001; 85025; 85610; 85730; 88305; 93005; C2631; J0330; J0744; J1100; J1170; J2175; J2250; J2370; J2704; J3010

== ENCOUNTER → 2019-12-30 | Outpatient (CLI) | payer MEDICARE, MEDICAID ==
[2019-12-30 08:01] LABS: Basophils # (auto) 0.1 10 ^3/uL (0-0.2); Basophils % (auto) 1.2 % (0.0-2.0); Eosinophils # (auto) 0 10 ^3/uL (0-0.8); Hemoglobin 15.1 g/dL (12.2-16.2); Lymphocytes # (auto) 1.7 10 ^3/uL (0.4-5.4); Mean Corpuscular Hemoglobin 32.9 pg (28.0-32.0); Mean Corpuscular Hgb Conc. 34.3 g/dL (32.0-36.0); Monocytes # (auto) 0.5 10 ^3/uL (0-1.3); Neutrophils # (auto) 2.8 10 ^3/uL (1.6-8.6); Neutrophils % (auto) 55.8 % (37.0-80.0); Nucleated Red Blood Cells % 0.1 %; Platelet Count (auto) 181 10^3/uL (140-450); Red Blood Cells 4.58 10^6/uL (4.0-5.20); Red Cell Distribution Width 14.1 % (11.8-14.3)
[2019-12-30 08:05] LABS: Urine Bacteria MANY /hpf (None Seen); Urine Blood Negative /uL (Negative); Urine Specific Gravity 1.006 (1.001-1.035); Urine WBC 81 /hpf (0 - 5); Urine WBC Clumps PRESENT /hpf (None Seen)
[2019-12-30 08:22] LABS: Albumin 3.6 g/dL (3.4-5.0); Calcium 8.5 mg/dL (8.5-10.1); Potassium 3.7 mmol/L (3.5-5.1)
[2019-12-30 08:26] LABS: BUN/Creatinine Ratio 21.5; Bilirubin, Total 1.8 mg/dL (0.2-1.0); CRP High Sensitivity 0.03 mg/dL (< 0.3); Total Protein 7.8 g/dL (6.4-8.2)
[2019-12-30 08:37] LABS: Free T4 (Free Thyroxine) 1.57 ng/dL (0.89-1.76)
== END | disposition home or self-care (01) ==
LOC: LAB 07:35
PROVIDERS: ATTEND Internal Medicine
DX: E11.40 Type 2 diabetes mellitus with diabetic neuropathy, unspecified (principal); E03.9 Hypothyroidism, unspecified; M06.9 Rheumatoid arthritis, unspecified; I10 Essential (primary) hypertension
CPT/HCPCS: 36415; 80053; 80061; 81001; 82043; 82607; 83036; 84439; 84443; 85025; 85652; 86141

== ENCOUNTER → 2020-09-07 | Outpatient (CLI) | payer MEDICARE, MEDICAID ==
[2020-09-07 11:44] LABS: Urine Blood Negative /uL (Negative); Urine Specific Gravity 1.008 (1.001-1.035)
[2020-09-07 11:46] LABS: Basophils # (auto) 0.1 10 ^3/uL (0-0.2); Eosinophils # (auto) 0.1 10 ^3/uL (0-0.8); Hematocrit 44.9 % (36.0-46.0); Hemoglobin 15.3 g/dL (12.2-16.2); Lymphocytes # (auto) 1.7 10 ^3/uL (0.4-5.4); Lymphocytes % (auto) 32.7 % (10.0-50.0); Mean Corpuscular Hemoglobin 32.4 pg (28.0-32.0); Mean Corpuscular Hgb Conc. 34.1 g/dL (32.0-36.0); Mean Corpuscular Volume 94.9 fL (80.0-100.0); Monocytes # (auto) 0.5 10 ^3/uL (0-1.3); Monocytes % (auto) 8.7 % (0.0-12.0); Neutrophils % (auto) 55.6 % (37.0-80.0); Nucleated Red Blood Cells % 0.1 %; Platelet Count (auto) 188 10^3/uL (140-450); Red Blood Cells 4.73 10^6/uL (4.0-5.20); Red Cell Distribution Width 13.9 % (11.8-14.3); White Blood Cell 5.3 10^3/uL (4.4-10.8)
[2020-09-07 11:55] LABS: Potassium 3.4 mmol/L (3.5-5.1)
[2020-09-07 12:02] LABS: Free T4 (Free Thyroxine) 1.44 ng/dL (0.89-1.76)
[2020-09-07 12:08] LABS: Albumin 3.9 g/dL (3.4-5.0); BUN/Creatinine Ratio 11.8; Bilirubin, Total 1.8 mg/dL (0.2-1.0); Calcium 8.9 mg/dL (8.5-10.1); Total Protein 8.4 g/dL (6.4-8.2)
== END | disposition home or self-care (01) ==
LOC: LAB 08:17
PROVIDERS: ATTEND Internal Medicine Cardiovascular Disease
DX: D51.3 Other dietary vitamin B12 deficiency anemia (principal); I10 Essential (primary) hypertension; E11.9 Type 2 diabetes mellitus without complications; E55.9 Vitamin D deficiency, unspecified; R00.2 Palpitations; R53.1 Weakness; R30.0 Dysuria
CPT/HCPCS: 36415; 80053; 80061; 81003; 82306; 82607; 83036; 84439; 84443; 85025; 87086

== ENCOUNTER → 2020-12-01 | Outpatient (CLI) | payer MEDICARE, MEDICAID ==
[2020-12-01 11:33] LABS: Urine Blood Negative /uL (Negative)
[2020-12-01 11:40] LABS: Calcium 9.3 mg/dL (8.5-10.1); Potassium 3.8 mmol/L (3.5-5.1)
== END | disposition home or self-care (01) ==
LOC: LAB 09:36
PROVIDERS: ATTEND Internal Medicine
DX: E11.9 Type 2 diabetes mellitus without complications (principal); N39.0 Urinary tract infection, site not specified; I10 Essential (primary) hypertension
CPT/HCPCS: 36415; 80048; 81003; 83036; 87086

== ENCOUNTER → 2020-12-26 | Outpatient (CLI) | payer MEDICARE, MEDICAID ==
[2020-12-26 11:41] LABS: Urine Blood Negative /uL (Negative); Urine Specific Gravity 1.026 (1.001-1.035)
== END | disposition home or self-care (01) ==
LOC: LAB 08:34
PROVIDERS: ATTEND Internal Medicine
DX: N39.0 Urinary tract infection, site not specified (principal)
CPT/HCPCS: 81003; 87086

== ENCOUNTER → 2021-10-02 | Outpatient (CLI) | payer MEDICARE, MEDICAID ==
[~2021-10-02] MED LIST changes: -ASPI-231 PO; +ASPI1TAB20 PO
[2021-10-02 11:44] LABS: Potassium 3.6 mmol/L (3.5-5.1)
[2021-10-02 11:58] LABS: Albumin 3.9 g/dL (3.4-5.0); BUN/Creatinine Ratio 9.5; Bilirubin, Total 1.6 mg/dL (0.2-1.0); Total Protein 7.9 g/dL (6.4-8.2)
== END | disposition home or self-care (01) ==
LOC: LAB 08:41
PROVIDERS: ATTEND Internal Medicine
DX: E11.9 Type 2 diabetes mellitus without complications (principal)
CPT/HCPCS: 36415; 80053; 83036

== ENCOUNTER → 2022-03-18 | Outpatient (CLI) | payer MEDICARE, MEDICAID | END | disposition home or self-care (01) | LOC: LAB 14:50 | PROVIDERS: ATTEND Urology | DX: N39.0 Urinary tract infection, site not specified (principal) | CPT/HCPCS: 87086 ==

== ENCOUNTER 2023-03-01 01:36 | Emergency (ER) | payer MEDICARE, MEDICAID ==
[~2023-03-01] VITALS: Ht 170.2 cm; Wt 85.4 kg
[~2023-03-01 01:36] MED LIST changes: +FOLI-119 PO; -FOLI1TAB6 PO; +GABA-1250 PO; -GABA300C10 PO
[2023-03-01 02:44] VITALS: BP 159/57
[2023-03-01] MEDS ORDERED: HYDROcodone-ACET 5/325MG TAB PO ONE (04:15)
[2023-03-01] MEDS ORDERED: ONDANSETRON ODT 4 MG TAB PO ONE (04:15)
[2023-03-01] MEDS ORDERED: ZOFR4T PO (05:43)
[2023-03-01] MEDS ORDERED: HYDR-4902 PO (05:43)
== END 2023-03-01 06:56 | disposition home or self-care (01) ==
LOC: ER 01:36
DX: S42.021A Displaced fracture of shaft of right clavicle, initial encounter for closed fracture (principal); R51.9 Headache, unspecified; R42 Dizziness and giddiness; E11.9 Type 2 diabetes mellitus without complications; K21.9 Gastro-esophageal reflux disease without esophagitis; I10 Essential (primary) hypertension; Z90.49 Acquired absence of other specified parts of digestive tract; Z90.710 Acquired absence of both cervix and uterus; Z87.891 Personal history of nicotine dependence; Z88.0 Allergy status to penicillin; Z88.2 Allergy status to sulfonamides; Z88.6 Allergy status to analgesic agent; W06.XXXA Fall from bed, initial encounter; Y93.89 Activity, other specified; Y92.092 Bedroom in other non-institutional residence as the place of occurrence of the external cause; Y99.8 Other external cause status
CPT/HCPCS: 70450; 71045; 72125; 73030; 99284; Q0162

== ENCOUNTER 2023-06-11 15:27 | Inpatient (IN) | payer MEDICARE, MEDICAID ==
[~2023-06-11] VITALS: Ht 172.7 cm; Wt 81.0 kg
[~2023-06-11 15:27] MED LIST changes: +HYDR-4902 PO; +ZOFR4T PO
[2023-06-11 16:08] LABS: Basophils # (auto) 0.1 10 ^3/uL (0-0.2); Basophils % (auto) 0.9 % (0.0-2.0); Eosinophils # (auto) 0 10 ^3/uL (0-0.8); Eosinophils % (auto) 0.3 % (0.0-7.0); Hematocrit 44.1 % (36.0-46.0); Hemoglobin 15.3 g/dL (12.2-16.2); Lymphocytes # (auto) 2.4 10 ^3/uL (0.4-5.4); Lymphocytes % (auto) 31.5 % (10.0-50.0); Mean Corpuscular Hemoglobin 31.1 pg (28.0-32.0); Mean Corpuscular Hgb Conc. 34.7 g/dL (32.0-36.0); Mean Corpuscular Volume 89.4 fL (80.0-100.0); Monocytes # (auto) 0.6 10 ^3/uL (0-1.3); Monocytes % (auto) 7.6 % (0.0-12.0); Neutrophils # (auto) 4.6 10 ^3/uL (1.6-8.6); Neutrophils % (auto) 59.7 % (37.0-80.0); Nucleated Red Blood Cells % 0.2 %; Red Blood Cells 4.93 10^6/uL (4.0-5.20); Red Cell Distribution Width 12.7 % (11.8-14.3); White Blood Cell 7.7 10^3/uL (4.4-10.8)
[2023-06-11 16:24] LABS: Alanine Aminotransferase 18 U/L (7-40); Alkaline Phosphatase 81 U/L (46-116); Anion Gap 14 (5-15); Aspartate Aminotransferase 27 U/L (13-40); BUN/Creatinine Ratio 29.8 (10.0-20.0); Bilirubin, Total 2.2 mg/dL (0.2-1.0); Blood Urea Nitrogen 45 mg/dL (9-23); Calcium 9.8 mg/dL (8.7-10.4); Carbon Dioxide 18 mmol/L (20-30); Chloride 103 mmol/L (98-107); Glucose 201 mg/dL (74-106); Potassium 4.4 mmol/L (3.5-5.1); Sodium 135 mmol/L (136-145); Total Protein 8.4 g/dL (5.7-8.2)
[2023-06-11 17:07] LABS: Lactic Acid w/Reflex 2.4 mmol/L (0.4-2.0)
[2023-06-11] MEDS ORDERED: levoFLOXacin 500MG 100 ML IV ONE (18:15)
[2023-06-11 18:29] LABS: Urine Bacteria MOD /hpf (None Seen); Urine Blood Negative /uL (Negative); Urine Clarity HAZY (Clear); Urine Color Yellow (Yellow); Urine Hyaline Cast MANY /lpf (0 - 2); Urine Mucus FEW (None Seen); Urine Protein, UAD 2+ (Negative); Urine Specific Gravity 1.017 (1.001-1.035); Urine Urobilinogen Normal (Negative); Urine WBC 387 /hpf (0 - 5); Urine WBC Clumps PRESENT /hpf (None Seen)
[2023-06-11] MEDS ORDERED: SODIUM CHLORIDE 0.9% 1,000 ML IV ONE (19:15)
[2023-06-11] MEDS ORDERED: ONDANSETRON HCL 4 MG/2 ML VIAL IV ONE (20:30)
[2023-06-11] MEDS ORDERED: MORPHINE SULFATE INJ 2 MG/ml SYRG IV PRN (21:00)
[2023-06-11] MEDS ORDERED: NITROGLYCERIN 0.4 MG SL TAB SL PRN (21:00)
[2023-06-11] MEDS: PHENAZOPYRIDINE HCL 100 MG TAB PO SCH (22:00)
[2023-06-11] MEDS: ATORVASTATIN 20 MG TAB PO SCH ×2 (22:00→22:21)
[2023-06-12 11:06] LABS: Basophils # (auto) 0 10 ^3/uL (0-0.2); Basophils % (auto) 0.6 % (0.0-2.0); Eosinophils # (auto) 0 10 ^3/uL (0-0.8); Eosinophils % (auto) 0.3 % (0.0-7.0); Hematocrit 42.5 % (36.0-46.0); Hemoglobin 14.8 g/dL (12.2-16.2); Lymphocytes # (auto) 1.7 10 ^3/uL (0.4-5.4); Lymphocytes % (auto) 20.4 % (10.0-50.0); Mean Corpuscular Hemoglobin 31.4 pg (28.0-32.0); Mean Corpuscular Hgb Conc. 34.8 g/dL (32.0-36.0); Mean Corpuscular Volume 90.2 fL (80.0-100.0); Monocytes # (auto) 0.7 10 ^3/uL (0-1.3); Monocytes % (auto) 8.2 % (0.0-12.0); Neutrophils # (auto) 5.9 10 ^3/uL (1.6-8.6); Neutrophils % (auto) 70.5 % (37.0-80.0); Nucleated Red Blood Cells % 0.2 %; Red Blood Cells 4.72 10^6/uL (4.0-5.20); Red Cell Distribution Width 12.8 % (11.8-14.3); White Blood Cell 8.3 10^3/uL (4.4-10.8)
[2023-06-12 11:20] LABS: Anion Gap 9 (5-15); Calcium 9.2 mg/dL (8.5-10.1); Carbon Dioxide 18 mmol/L (20-30); Chloride 107 mmol/L (98-107); Glucose 243 mg/dL (74-106); Potassium 4.8 mmol/L (3.5-5.1); Sodium 134 mmol/L (136-145)
[2023-06-12 12:48] VITALS: PULSE 97; RESP 15; O2SAT 100
[2023-06-12 12:51] LABS: Blood Urea Nitrogen 28 mg/dL (9-23)
[2023-06-12] MEDS: LISINOPRIL 5 MG TAB PO SCH (13:05)
[2023-06-12] MEDS: LEVOTHYROXINE SODIUM 100 MCG TAB PO SCH (13:05)
[2023-06-12] MEDS: PHENAZOPYRIDINE HCL 100 MG TAB PO SCH ×2 (15:12→23:31)
[2023-06-12] MEDS: levoFLOXacin 250MG 50 ML IV SCH (18:22)
[2023-06-12 20:00] VITALS: PULSE 88; RESP 15; O2SAT 97
[2023-06-12] MEDS ORDERED: DEXTROSE (50%) 50ML SYRG IV PRN (21:15)
[2023-06-12] MEDS: ATORVASTATIN 20 MG TAB PO SCH (22:00)
[2023-06-12] MEDS: ACCU-CHEK COMFORT CURVE STRIP VI SCH (22:00)
[2023-06-12] MEDS: InsuLIN REG 1unit/0.01ml Soln (100units/ml) SC SCH (22:00)
[2023-06-13 05:00] VITALS: BP 97/50; PULSE 76; RESP 18; TEMP 97.7; O2SAT 98
[2023-06-13] MEDS: InsuLIN REG 1unit/0.01ml Soln (100units/ml) SC SCH ×4 (06:05→23:01)
[2023-06-13] MEDS: LEVOTHYROXINE SODIUM 100 MCG TAB PO SCH (06:08)
[2023-06-13] MEDS: ACCU-CHEK COMFORT CURVE STRIP VI SCH ×4 (06:11→22:49)
[2023-06-13 06:14] LABS: Alanine Aminotransferase 10 U/L (7-40); Alkaline Phosphatase 62 U/L (46-116); Anion Gap 11 (5-15); Aspartate Aminotransferase 19 U/L (13-40); Blood Urea Nitrogen 29 mg/dL (9-23); Carbon Dioxide 17 mmol/L (20-30); Chloride 108 mmol/L (98-107); Glucose 187 mg/dL (74-106); Magnesium 2.1 mg/dL (1.6-2.6); Potassium 3.9 mmol/L (3.5-5.1); Sodium 136 mmol/L (136-145)
[2023-06-13 06:15] LABS: Bilirubin, Total 1.7 mg/dL (0.2-1.0); Total Protein 6.9 g/dL (5.7-8.2)
[2023-06-13 07:27] LABS: Basophils # (auto) 0.1 10 ^3/uL (0-0.2); Basophils % (auto) 0.9 % (0.0-2.0); Eosinophils # (auto) 0.1 10 ^3/uL (0-0.8); Eosinophils % (auto) 1.7 % (0.0-7.0); Hematocrit 37.7 % (36.0-46.0); Hemoglobin 13.1 g/dL (12.2-16.2); Lymphocytes # (auto) 1.9 10 ^3/uL (0.4-5.4); Lymphocytes % (auto) 31.8 % (10.0-50.0); Mean Corpuscular Hemoglobin 31.6 pg (28.0-32.0); Mean Corpuscular Hgb Conc. 34.7 g/dL (32.0-36.0); Monocytes # (auto) 0.6 10 ^3/uL (0-1.3); Monocytes % (auto) 10.4 % (0.0-12.0); Neutrophils # (auto) 3.3 10 ^3/uL (1.6-8.6); Neutrophils % (auto) 55.2 % (37.0-80.0); Nucleated Red Blood Cells % 0.1 %; Red Blood Cells 4.14 10^6/uL (4.0-5.20); Red Cell Distribution Width 12.7 % (11.8-14.3); White Blood Cell 5.9 10^3/uL (4.4-10.8)
[2023-06-13 08:00] VITALS: BP 101/52; PULSE 116; PULSE 70; PULSE 78; RESP 18; TEMP 97.8; O2SAT 96; O2SAT 98
[2023-06-13] MEDS: PHENAZOPYRIDINE HCL 100 MG TAB PO SCH ×2 (09:37→22:49)
[2023-06-13] MEDS: LISINOPRIL 5 MG TAB PO SCH (09:37)
[2023-06-13 12:30] VITALS: BP 106/53; PULSE 76; RESP 18; TEMP 98.1; O2SAT 97
[2023-06-13] MEDS: levoFLOXacin 250MG 50 ML IV SCH (18:51)
[2023-06-13 19:30] VITALS: RESP 18; O2SAT 96
[2023-06-13 22:00] VITALS: BP 98/52; PULSE 80; RESP 18; TEMP 97.9; O2SAT 98
[2023-06-13] MEDS: ATORVASTATIN 20 MG TAB PO SCH (22:49)
[2023-06-14 05:00] VITALS: BP 94/50; PULSE 75; RESP 16; TEMP 97.7; O2SAT 98
[2023-06-14] MEDS: LEVOTHYROXINE SODIUM 100 MCG TAB PO SCH (06:09)
[2023-06-14] MEDS: ACCU-CHEK COMFORT CURVE STRIP VI SCH ×4 (06:10→21:13)
[2023-06-14] MEDS: InsuLIN REG 1unit/0.01ml Soln (100units/ml) SC SCH ×4 (06:16→21:19)
[2023-06-14 06:24] LABS: Anion Gap 11 (5-15); Calcium 9.3 mg/dL (8.7-10.4); Carbon Dioxide 18 mmol/L (20-30); Chloride 108 mmol/L (98-107); Potassium 3.7 mmol/L (3.5-5.1); Sodium 137 mmol/L (136-145)
[2023-06-14 06:30] LABS: Blood Urea Nitrogen 34 mg/dL (9-23); Glucose 161 mg/dL (74-106)
[2023-06-14 09:00] VITALS: BP 101/54; PULSE 78; RESP 17; TEMP 98.2; O2SAT 97
[2023-06-14] MEDS: PHENAZOPYRIDINE HCL 100 MG TAB PO SCH ×2 (10:43→21:13)
[2023-06-14] MEDS: LISINOPRIL 5 MG TAB PO SCH (10:43)
[2023-06-14 13:00] VITALS: BP 103/59; PULSE 89; RESP 18; TEMP 98.8; O2SAT 98
[2023-06-14] MEDS ORDERED: AZTREONAM 1GM INJ 1 GM in D5W 5% 50 ML IV SCH (16:00)
[2023-06-14 17:00] VITALS: BP 97/52; PULSE 76; RESP 17; TEMP 98; O2SAT 97
[2023-06-14] MEDS: ATORVASTATIN 20 MG TAB PO SCH (21:13)
[2023-06-14 22:00] VITALS: BP 109/56; PULSE 82; RESP 16; TEMP 98; O2SAT 99
[2023-06-14] MEDS ORDERED: MEROPENEM 1GM IVPB 100 ML IV SCH (22:00)
[2023-06-15] MEDS: AZTREONAM 1GM INJ 1 GM in D5W 5% 50 ML IV SCH ×3 (00:22→16:49)
[2023-06-15 05:00] VITALS: BP 110/50; PULSE 77; RESP 16; TEMP 98; O2SAT 98
[2023-06-15] MEDS: LEVOTHYROXINE SODIUM 100 MCG TAB PO SCH (06:07)
[2023-06-15] MEDS: ACCU-CHEK COMFORT CURVE STRIP VI SCH ×4 (06:07→21:45)
[2023-06-15] MEDS: InsuLIN REG 1unit/0.01ml Soln (100units/ml) SC SCH ×4 (06:13→21:45)
[2023-06-15] MEDS: PHENAZOPYRIDINE HCL 100 MG TAB PO SCH ×2 (08:55→20:39)
[2023-06-15] MEDS: LISINOPRIL 5 MG TAB PO SCH (08:56)
[2023-06-15 09:00] VITALS: BP 115/57; PULSE 86; RESP 18; TEMP 98.5; O2SAT 97
[2023-06-15 13:00] VITALS: BP 109/51; PULSE 66; RESP 18; TEMP 98.1; O2SAT 94
[2023-06-15 17:00] VITALS: BP 115/65; PULSE 71; RESP 18; TEMP 97.6; O2SAT 100
[2023-06-15] MEDS: ATORVASTATIN 20 MG TAB PO SCH (20:39)
[2023-06-15 22:00] VITALS: BP 110/50; PULSE 82; RESP 18; TEMP 97.6; O2SAT 99
[2023-06-16] MEDS: AZTREONAM 1GM INJ 1 GM in D5W 5% 50 ML IV SCH (00:14)
[2023-06-16 05:00] VITALS: BP 95/47; PULSE 74; RESP 17; TEMP 97.8; O2SAT 98
[2023-06-16] MEDS: LEVOTHYROXINE SODIUM 100 MCG TAB PO SCH (05:30)
[2023-06-16 05:45] LABS: Basophils # (auto) 0 10 ^3/uL (0-0.2); Basophils % (auto) 0.7 % (0.0-2.0); Eosinophils # (auto) 0.2 10 ^3/uL (0-0.8); Eosinophils % (auto) 2.2 % (0.0-7.0); Hematocrit 40.1 % (36.0-46.0); Lymphocytes # (auto) 3.2 10 ^3/uL (0.4-5.4); Lymphocytes % (auto) 43.6 % (10.0-50.0); Mean Corpuscular Hemoglobin 31.2 pg (28.0-32.0); Mean Corpuscular Hgb Conc. 34.9 g/dL (32.0-36.0); Mean Corpuscular Volume 89.3 fL (80.0-100.0); Monocytes # (auto) 0.5 10 ^3/uL (0-1.3); Monocytes % (auto) 6.9 % (0.0-12.0); Neutrophils # (auto) 3.4 10 ^3/uL (1.6-8.6); Neutrophils % (auto) 46.6 % (37.0-80.0); Nucleated Red Blood Cells % 0.3 %; Red Blood Cells 4.49 10^6/uL (4.0-5.20); Red Cell Distribution Width 12.6 % (11.8-14.3); White Blood Cell 7.3 10^3/uL (4.4-10.8)
[2023-06-16] MEDS: ACCU-CHEK COMFORT CURVE STRIP VI SCH ×3 (05:55→17:00)
[2023-06-16] MEDS: InsuLIN REG 1unit/0.01ml Soln (100units/ml) SC SCH ×3 (05:56→17:00)
[2023-06-16 06:05] LABS: Alanine Aminotransferase 11 U/L (7-40); Albumin 4.2 g/dL (3.2-4.8); Alkaline Phosphatase 64 U/L (46-116); Anion Gap 9 (5-15); Aspartate Aminotransferase 15 U/L (13-40); Bilirubin, Total 1.6 mg/dL (0.2-1.0); Blood Urea Nitrogen 20 mg/dL (9-23); Calcium 9.2 mg/dL (8.5-10.1); Carbon Dioxide 20 mmol/L (20-30); Chloride 108 mmol/L (98-107); Glucose 151 mg/dL (74-106); Potassium 4.2 mmol/L (3.5-5.1); Sodium 137 mmol/L (136-145); Total Protein 7.3 g/dL (5.7-8.2)
[2023-06-16 08:00] VITALS: PULSE 69; RESP 18; O2SAT 97
[2023-06-16 08:39] VITALS: BP 99/48; PULSE 69; RESP 18; TEMP 97.8; O2SAT 97
[2023-06-16] MEDS: PHENAZOPYRIDINE HCL 100 MG TAB PO SCH (08:56)
[2023-06-16] MEDS: LISINOPRIL 5 MG TAB PO SCH (08:56)
[2023-06-16] MEDS ORDERED: ERTAPENEM SOD INJ 1 GM in SODIUM CHL 0.9% 50 ML IV ONE (11:15)
[2023-06-16 13:00] VITALS: BP 130/62; PULSE 78; RESP 17; TEMP 98.3; O2SAT 100
[2023-06-16 16:48] VITALS: BP_SYST 113; BP_SYST 99; BP_DIAS 48; BP_DIAS 64; PULSE 102; RESP 16; TEMP 98.7; O2SAT 99
[2023-06-17] MEDS ORDERED: ERTAPENEM SOD INJ 1 GM in SODIUM CHL 0.9% 50 ML IV SCH (10:00)
== END 2023-06-16 19:22 | DRG 689 ==
LOC: ER 15:27 → TELE 20:56 → CENTRAL 06-12 22:22 → TELE-CENTR 06-12 22:31 → CENTRAL 06-13 09:38
PROVIDERS: ADMIT Nurse Practitioner; ATTEND Internal Medicine
PROC: 05HF33Z Insertion of Infusion Device into Left Cephalic Vein, Percutaneous Approach (ICD-10-PCS; principal; 2023-06-16)
PROC: B54NZZA Ultrasonography of Left Upper Extremity Veins, Guidance (ICD-10-PCS; 2023-06-16)
DX: N39.0 Urinary tract infection, site not specified (principal); N17.0 Acute kidney failure with tubular necrosis; Z16.23 Resistance to quinolones and fluoroquinolones; F32.A Depression, unspecified; K21.9 Gastro-esophageal reflux disease without esophagitis; N18.31 Chronic kidney disease, stage 3a; E11.22 Type 2 diabetes mellitus with diabetic chronic kidney disease; M06.9 Rheumatoid arthritis, unspecified; I12.9 Hypertensive chronic kidney disease with stage 1 through stage 4 chronic kidney disease, or unspecified chronic kidney disease; B96.4 Proteus (mirabilis) (morganii) as the cause of diseases classified elsewhere; Z87.440 Personal history of urinary (tract) infections; Z88.5 Allergy status to narcotic agent; Z88.0 Allergy status to penicillin; Z88.8 Allergy status to other drugs, medicaments and biological substances; Z79.899 Other long term (current) drug therapy; Z79.891 Long term (current) use of opiate analgesic; Z79.4 Long term (current) use of insulin; Z90.49 Acquired absence of other specified parts of digestive tract; Z90.710 Acquired absence of both cervix and uterus; Z85.038 Personal history of other malignant neoplasm of large intestine
CPT/HCPCS: 36415; 74176; 80048; 80053; 81001; 82962; 83036; 83605; 83690; 83735; 85025; 87086; 87088; 87186; G0378; J1335; J1815; J1956; J2405; J7060

== ENCOUNTER 2023-10-25 12:28 | Emergency (ER) | payer MEDICARE, MEDICAID ==
[~2023-10-25] VITALS: Ht 172.7 cm; Wt 80.5 kg
[~2023-10-25 12:28] MED LIST changes: +NITR-87 PO
[2023-10-25 13:17] LABS: Urine Bacteria FEW /hpf (None Seen); Urine Blood Negative /uL (Negative); Urine Clarity HAZY (Clear); Urine Color Yellow (Yellow); Urine Protein, UAD Negative (Negative); Urine Specific Gravity 1.008 (1.001-1.035); Urine Urobilinogen Normal (Negative); Urine WBC 205 /hpf (0 - 5)
[2023-10-25] MEDS ORDERED: NITR-87 PO (15:04)
[2023-10-25] MEDS ORDERED: ZOFR4T PO (15:06)
[2023-10-25 15:36] LABS: Basophils # (auto) 0.1 10 ^3/uL (0-0.2); Eosinophils # (auto) 0.1 10 ^3/uL (0-0.8); Eosinophils % (auto) 1.5 % (0.0-7.0); Hematocrit 42.2 % (36.0-46.0); Hemoglobin 14.5 g/dL (12.2-16.2); Lymphocytes # (auto) 2.4 10 ^3/uL (0.4-5.4); Lymphocytes % (auto) 32.2 % (10.0-50.0); Mean Corpuscular Hemoglobin 31.3 pg (28.0-32.0); Mean Corpuscular Hgb Conc. 34.3 g/dL (32.0-36.0); Mean Corpuscular Volume 91.1 fL (80.0-100.0); Monocytes # (auto) 0.5 10 ^3/uL (0-1.3); Monocytes % (auto) 6.8 % (0.0-12.0); Neutrophils # (auto) 4.4 10 ^3/uL (1.6-8.6); Neutrophils % (auto) 58.5 % (37.0-80.0); Red Blood Cells 4.63 10^6/uL (4.0-5.20); Red Cell Distribution Width 13.3 % (11.8-14.3); White Blood Cell 7.6 10^3/uL (4.4-10.8)
[2023-10-25 16:07] LABS: Alanine Aminotransferase 24 U/L (7-40); Albumin 4.9 g/dL (3.2-4.8); Alkaline Phosphatase 65 U/L (46-116); Anion Gap 8 (5-15); Aspartate Aminotransferase 33 U/L (13-40); BUN/Creatinine Ratio 18.9 (10.0-20.0); Blood Urea Nitrogen 17 mg/dL (9-23); Calcium 9.5 mg/dL (8.7-10.4); Carbon Dioxide 26 mmol/L (20-30); Chloride 110 mmol/L (98-107); Glucose 91 mg/dL (74-106); Lipase 33 U/L (12-53); Potassium 3.7 mmol/L (3.5-5.1); Sodium 144 mmol/L (136-145)
[2023-10-25 17:05] VITALS: BP 136/57; PULSE 77; RESP 18; TEMP 98.4; O2SAT 99
== END 2023-10-25 17:07 | disposition home or self-care (01) ==
LOC: ER 12:28
DX: N39.0 Urinary tract infection, site not specified (principal); I10 Essential (primary) hypertension; E11.9 Type 2 diabetes mellitus without complications; E78.5 Hyperlipidemia, unspecified; E03.9 Hypothyroidism, unspecified; K21.9 Gastro-esophageal reflux disease without esophagitis; Z90.49 Acquired absence of other specified parts of digestive tract; Z90.710 Acquired absence of both cervix and uterus; Z90.89 Acquired absence of other organs; Z87.891 Personal history of nicotine dependence; Z79.4 Long term (current) use of insulin; Z79.82 Long term (current) use of aspirin; Z79.899 Other long term (current) drug therapy; Z88.0 Allergy status to penicillin; Z88.2 Allergy status to sulfonamides; Z88.5 Allergy status to narcotic agent; Z88.8 Allergy status to other drugs, medicaments and biological substances
CPT/HCPCS: 36415; 74176; 80053; 81001; 83690; 84484; 85025; 93005

== ENCOUNTER 2025-03-30 14:19 | Emergency (ER) | payer MEDICARE, MEDICAID ==
[~2025-03-30] VITALS: Ht 172.7 cm; Wt 70.6 kg
[~2025-03-30 14:19] MED LIST changes: -HYDR-4188 PO; +HYDR-4491 PO
[2025-03-30] MEDS: KETOROLAC TROMETH 30 MG/ML 1ML VIAL IM ONE (15:37)
[2025-03-30] MEDS: methylPREDNISolone SOD SUCC 125 MG/2 ML VL IM ONE (15:38)
[2025-03-30 15:39] VITALS: BP 130/63; PULSE 72; RESP 17; TEMP 98.2; O2SAT 97
[2025-03-30] MEDS ORDERED: CYCL-837 PO (15:53)
--- NOTE | 2025-03-30 15:55 | ED.PDOC ---
Back pain HPI HPI Comments YEAR OLD FEMALE COMPLAINING OF LEFT SHOULDER PAIN. PATIENT STATES THE PAIN RADIATES DOWN HER ARM AND DOWN HER NECK. REPORTS A HISTORY OF LEFT SHOULDER PAIN WAS TOLD BY HER MAKEUP EDITOR THAT SHE MAY HAVE FIBROMYALGIA. STATES HIS SHE WAS INSTRUCTED ON METHODS TO HELP ALLEVIATE HER FIBROMYALGIA WITH THE PRESSURE POINTS BUT STATES THEY WERE NOT WORKING. PATIENT STATES PAIN HAS BEEN GETTING WORSE OVER THE LAST THREE WEEKS. NOTHING MAKES IT BETTER, MOVEMENT MAKES IT WORSE. Chief Complaint: Neck Pain Time Seen by MD: 14:21 Primary Care Provider: JONATHAN Reviewed Notes: Nurses Notes Allergies: Coded Allergies: Cefaclor (Verified Allergy, Unknown, 05/27/19) Codeine (Verified Allergy, Unknown, 05/27/19) Penicillins (Verified Allergy, Unknown, 05/27/19) Sulfa Drugs (Verified Allergy, Unknown, 05/27/19) Home Meds Active Scripts Ondansetron Odt 4MG Tab (ZOFRAN PO) 4 Mg Tb, 4 MG PO Q8HPRN PRN, #20 TAB 0 Refills ODT TAB-DISSOLVE IN MOUTH, THEN SWALLOW Prov:LEEANN SCHWAB MD 10/25/23 Nitrofurantoin Monohydrate Mac (Macrobid) 100 Mg Cap, 100 MG PO BID for 10 Days, #20 CAP 0 Refills Prov:LEEANN SCHWAB MD 10/25/23 Hydrocodone-Acetaminophen (Hydrocodone Bitartrate/AC 5-325 mg) 1 Tab Tab, 1 TAB PO Q4HPRN PRN, #20 TAB 0 Refills Prov:BETH RAMOS 03/01/23 Reported Medications Methotrexate (Otrexup) 10 Mg/0.4 Ml Inj, 5 MG SC QWEEKLY, INJ 05/27/19 Travoprost (Travatan Z) 0.004 % Jeremi, 1 DROP EACHEYE QPM, #2.5 ML 2 Refills 12/05/17 Insulin Isophane & Reg (Human) (NOVOLIN 70/30 RELION) Relion Inj, 30 UNITS SC QPM, INJ 12/06/16 Insulin Isophane & Reg (Human) (NOVOLIN 70/30 RELION) Relion Inj, 35 UNITS SC QAM, INJ 12/06/16 Aspirin (Aspir-81) 81 Mg Tab, 1 TAB PO DAILY, #30 TAB 5 Refills 12/06/16 Atorvastatin Calcium (ATORVASTATIN CALCIUM) 10 Mg Tab, 1 TAB PO DAILY, #30 TAB 5 Refills 12/06/16 Folic Acid (Folic Acid) 1 Mg Tab, 1 MG PO DAILY, TAB 12/06/16 Gabapentin (Gabapentin) 300 Mg Cap, 1 CAP PO TID, #90 CAP 5 Refills 12/06/16 Omeprazole (PRILOSEC) 20 Mg Cap, 40 CAP PO DAILY, #90 CAP 1 Refill 12/06/16 Levothyroxine Sodium (Levothyroxine Sodium) 150 Mcg Tab, 100 MCG PO DAILY, TAB 10/08/14 Hydroxychloroquine Sulfate (PLAQUENIL) 200 Mg Tab, 1.5 TAB PO BID, TAB 10/08/14 Information Source: Patient Past Medical History PAST MEDICAL HISTORY: Arthritis, Depression, DM, GERD, High Lipids, HTN, Thyroid, UTI'S Surgical History: Cholecystectomy, , Hysterectomy, Thyroidectomy SENIOR PROCUREMENT MANAGER History: Denies all SENIOR PROCUREMENT MANAGER Hx Family History Family History: Family hx of heart olman, Family hx of HTN Social History Smoker: Quit Greater Than 1 Year, Other Alcohol: Denies ETOH Use Drugs: Denies Drug Use Lives In: Home Constitutional: denies: chills, diaphoresis, fatigue, fever, malaise, sweats, weakness, others EENTM: denies: blurred vision, double vision, ear bleeding, ear discharge, ear drainage, ear pain, ear ringing, eye pain, eye redness, hearing loss, mouth pain, mouth swelling, nasal discharge, nose bleeding, nose congestion, nose pain, photophobia, tearing, throat pain, throat swelling, voice changes, others Respiratory: denies: cough, hemoptysis, orthopnea, SOB at rest, shortness of breath, SOB with excertion, stridor, wheezing, others Cardiovascular: denies: chest pain, dizzy spells, diaphoresis, Dyspnea on exertion, edema, irregular heart beat, left arm pain, lightheadedness, palpitations, PND, syncope, others Gastrointestinal: denies: abdomen distended, abdominal pain, blood streaked bowels, constipated, diarrhea, dysphagia, difficulty swallowing, hematemesis, melena, nausea, poor appetite, poor fluid intake, rectal bleeding, rectal pain, vomiting, others Genitourinary: denies: abnormal vagina bleeding, burning, dyspareunia, dysuria, flank pain, frequency, hematuria, incontinence, pain, , vagina discharg e, urgency, others Neurological: denies: dizziness, fainting, headache, left sided numbness, left sided weakness, numbness, paresthesia, pre-existing deficit, right sided numbness, right sided weakness, seizure, speech problems, tingling, tremors, weakness, others Musculoskeletal: denies: back pain, gout, joint pain, joint swelling, muscle pain, muscle stiffness, neck pain, others Integumetry: denies: bruises, change in color, change in hair/nails, dryness, laceration, lesions, lumps, rash, wounds, others Allergic/Immunocompromised: denies: Difficulty Healing, Frequent Infections, Hives, Itching, others Physical Exam General Appearance: No Apparent Distress, Normal HEENT: Normal ENT Inspection, Pharynx Normal, TMs Normal Neck: Full Range of Motion, Non-Tender, Normal, Normal Inspection Respiratory: Chest Non-Tender, Lungs Clear, No Accessory Muscle Use, No Respiratory Distress, Normal Breath Sounds Cardiovascular: No Edema, No JVD, No Murmur, No Gallop, Normal Peripheral Pulses, Regular Rate/Rhythm Breast Exam: Deferred Gastrointestinal: No Organomegaly, Non Tender, No Pulsatile Mass, Normal Bowel Sounds, Soft Genitalia: Deferred Pelvic: Deferred Rectal: Deferred Extremities: No calf tenderness, Normal capillary refill, Normal inspection, No pedal edema, Tender (TENDER TO PALPATION OVER LEFT TRAPEZIUS MUSCLE. FULL RANGE OF MOTION OF THE SHOULDER. PATIENT DOES REPORT TENDERNESS TO PALPATION OF THE DELTOID.) Musculoskeletal : Apperance: Normal Neurologic: Alert, gill box tender II-XII nml as Tested, No Motor Deficits, Normal Affect, Normal Mood, No Sensory Deficits Cerebellar Function: Normal Reflexes: Normal Skin: Dry, Normal Color, Warm Lymphatic: No Adenopathy Was a procedure done? Was a procedure done?: No Back Pain Differential Dx Differential Diagnosis: Musculoskeletal Pain, Other (LEFT SHOULDER STRAIN) X-Ray, Labs, Meds, VS Vital Signs Date Time Temp Pulse Resp B/P (MAP) Pulse Ox O2 Delivery O2 Flow Rate FiO2 03/30/25 15:39 72 17 97 Room Air 03/30/25 15:39 98.2 72 17 130/63 (85) 97 98.2 03/30/25 14:32 83 Current Medications Medications (Trade) Dose Ordered Sig/Kingsley Route Start Time Stop Time Status Last Admin Methylprednisolone Sodium Succinate (Solu Medrol) 125 mg ONCE ONCE IM 03/30/25 14:45 03/30/25 14:46 DC 03/30/25 15:38 Ketorolac Tromethamine (Toradol Injection) 30 mg ONCE ONCE IM 03/30/25 14:45 03/30/25 14:46 DC 03/30/25 15:37 X-Ray, Labs, Meds, VS Comment IMAGING: X-RAYS AND CT SCANS WERE REVIEWED AND INTERPRETED BY THIS PROVIDER, IMAGING SHOWS NO FRACTURES AND NO PATHOLOGICAL DISEASE. PENDING RADIOLOGY REVIEW. LABORATORY: LABS REVIEWED AND INTERPRETED BY THIS PROVIDER. NO SIGNIFICANT ABNORMALITIES NOTED. PATIENT HAS PRIOR MEDICAL VISITS REVIEWED. MED RECONCILIATION PERFORMED VITAL SIGNS REVIEWED PATIENT IS SHOULDER PAIN APPEARS PRESENT ARTHRITIS AND POSSIBLE FIBROMYALGIA NO CARDIAC SYMPTOMS PATIENT STATES SHE WAS HAVING RELIEF WHEN SHE WAS TAKING FLEXERIL BUT HER PRESCRIPTION WAS UNABLE TO BE AUTHORIZED Time of 1ST Reevaluation: 15:55 Reevaluation 1ST: Improved Patient Education/Counseling: Diagnosis, Treatment, Need For Follow Up (FOLLOW UP WITH PCP IN NEXT AVAILABLE APPOINTMENT. RETURN TO EMERGENCY DEPART IF SYMPTOMS WORSEN.) Family Education/Counseling: Diagnosis SEPSIS Sepsis Screen Physician Orders Electrocardigram (03/30/25 14:38) Electrocardigram (03/30/25 15:38) Vital Signs Date Time Temp Pulse Resp B/P (MAP) Pulse Ox O2 Delivery O2 Flow Rate FiO2 03/30/25 15:39 72 17 97 Room Air 03/30/25 15:39 98.2 72 17 130/63 (85) 97 98.2 03/30/25 14:32 83 Medications Medications Dose Ordered Sig/Kingsley Route Start Time Stop Time Status Last Admin Dose Admin Ketorolac Tromethamine 30 mg ONCE ONCE IM 03/30/25 14:45 03/30/25 14:46 DC 03/30/25 15:37 Methylprednisolone Sodium Succinate 125 mg ONCE ONCE IM 03/30/25 14:45 03/30/25 14:46 DC 03/30/25 15:38 Departure 1 Departure Time of Disposition: 15:52 Impression: Primary Impression: Rheumatoid arthritis Qualified Codes: M06.9 - Rheumatoid arthritis, unspecified Disposition: 01 HOME / SELF CARE / HOMELESS Condition: Fair e-Prescriptions Cyclobenzaprine Hcl (Cyclobenzaprine Hcl) 5 Mg Tab 1 TAB PO TID, #30 TAB Prov: EUGENIA OSBORNE 03/30/25 Discharged With: Self Critical Care Note Critical Care Time?: No Stability Stability form required: No Heart Score Heart Score: Heart Score Response (Comments) Value History N/A 0 EKG N/A 0 Age N/A 0 Risk Factors N/A 0 Troponin N/A 0 Total 0 EUGENIA OSBORNE Mar 30, 2025 15:55
--- NOTE | 2025-03-31 06:25 | ECG ---
[facility] Test Date: 2025-03-30 Test Time: 14:32:37 Pat Name: PATRICK MENDEZ Department: [facility] ED Patient ID: [id number] Room: Gender: F Systems Spec: SVETA : 1955 Requested By: EUGENIA OSBORNE Order Number: [id number] Reading MD: Pedro Klein Measurements Intervals [place] Rate: 83 P: 73 IA: 161 QRS: 111 QRSD: 134 T: 47 QT: 393 QTc: 462 Interpretive Statements Sinus rhythm RBBB and LPFB ST elevation, consider inferior injury Electronically Signed On 03-31-2025 11:20:14 PDT by Pedro Klein Please click the below link to view image of tracing.
== END 2025-03-30 16:07 | disposition home or self-care (01) ==
LOC: ER 14:19
DX: M06.9 Rheumatoid arthritis, unspecified (principal); E11.9 Type 2 diabetes mellitus without complications; I10 Essential (primary) hypertension; Z88.0 Allergy status to penicillin; Z88.5 Allergy status to narcotic agent; Z90.49 Acquired absence of other specified parts of digestive tract; Z88.2 Allergy status to sulfonamides; Z90.710 Acquired absence of both cervix and uterus; Z79.899 Other long term (current) drug therapy
CPT/HCPCS: 93005; 96372; 99284; J1885; J2919

== ENCOUNTER 2025-06-25 19:46 | Emergency (ER) | payer MEDICARE, MEDICAID ==
[~2025-06-25] VITALS: Ht 172.7 cm; Wt 72.7 kg
[~2025-06-25 19:46] MED LIST changes: +CYCL-837 PO
[2025-06-25] MEDS: HYDROcodone-ACET 5/325MG TAB PO ONE (20:00)
--- NOTE | 2025-06-25 20:27 | ED.PDOC ---
History of Present Illness HPI Comments 69 y/o F presents with c/c of left ankle pain s/p mechanical fall and injury. Patient reports on falling forwards and rolling her left ankle outwards, earlier, this evening. No additional injuries reported. Patient is unable to bear weight on left ankle. No history of previous injuries to said ankle. Vitals stable and within normal limits upon arrival to ED, with exception of patient being hypertensive. Chief Complaint: Lower Extremity Time Seen by MD: 20:15 Primary Care Provider: JONATHAN Reviewed Notes: Nurses Notes, Medications, Allergies Allergies: Coded Allergies: Cefaclor (Verified Allergy, Unknown, 05/27/19) Codeine (Verified Allergy, Unknown, 05/27/19) Penicillins (Verified Allergy, Unknown, 05/27/19) Sulfa Drugs (Verified Allergy, Unknown, 05/27/19) Home Meds Active Scripts Hydrocodone-Acetaminophen (Hydrocodone Bitartrate/AC 5-325 mg) 1 Tab Tab, 1 TAB PO Q6HP PRN, #15 TAB Prov:STEPH VERONICA PAC 06/25/25 Ibuprofen (Ibuprofen) 600 Mg Tab, 1 TAB PO Q6HP PRN, #30 TAB Prov:STEPH VERONICA PAC 06/25/25 Cyclobenzaprine Hcl (Cyclobenzaprine Hcl) 5 Mg Tab, 1 TAB PO TID, #30 TAB Prov:EUGENIA OSBORNE 03/30/25 Ondansetron Odt 4MG Tab (ZOFRAN PO) 4 Mg Tb, 4 MG PO Q8HPRN PRN, #20 TAB 0 Refills ODT TAB-DISSOLVE IN MOUTH, THEN SWALLOW Prov:LEEANN COPPOLA MD 10/25/23 Nitrofurantoin Monohydrate Mac (Macrobid) 100 Mg Cap, 100 MG PO BID for 10 Days, #20 CAP 0 Refills Prov:LEEANN COPPOLA MD 10/25/23 Hydrocodone-Acetaminophen (Hydrocodone Bitartrate/AC 5-325 mg) 1 Tab Tab, 1 TAB PO Q4HPRN PRN, #20 TAB 0 Refills Prov:BETH RAMOS 03/01/23 Reported Medications Methotrexate (Otrexup) 10 Mg/0.4 Ml Inj, 5 MG SC QWEEKLY, INJ 05/27/19 Travoprost (Travatan Z) 0.004 % Jeremi, 1 DROP EACHEYE QPM, #2.5 ML 2 Refills 12/05/17 Insulin Isophane & Reg (Human) (NOVOLIN 70/30 RELION) Relion Inj, 30 UNITS SC QPM, INJ 12/06/16 Insulin Isophane & Reg (Human) (NOVOLIN 70/30 RELION) Relion Inj, 35 UNITS SC QAM, INJ 12/06/16 Aspirin (Aspir-81) 81 Mg Tab, 1 TAB PO DAILY, #30 TAB 5 Refills 12/06/16 Atorvastatin Calcium (ATORVASTATIN CALCIUM) 10 Mg Tab, 1 TAB PO DAILY, #30 TAB 5 Refills 12/06/16 Folic Acid (Folic Acid) 1 Mg Tab, 1 MG PO DAILY, TAB 12/06/16 Gabapentin (Gabapentin) 300 Mg Cap, 1 CAP PO TID, #90 CAP 5 Refills 12/06/16 Omeprazole (PRILOSEC) 20 Mg Cap, 40 CAP PO DAILY, #90 CAP 1 Refill 12/06/16 Levothyroxine Sodium (Levothyroxine Sodium) 150 Mcg Tab, 100 MCG PO DAILY, TAB 10/08/14 Hydroxychloroquine Sulfate (PLAQUENIL) 200 Mg Tab, 1.5 TAB PO BID, TAB 10/08/14 Information Source: Patient, Friend Mode of Arrival: Wheelchair Severity: Moderate Timing: Hours Duration: Since onset Prehospital treatment: None Past Medical History PAST MEDICAL HISTORY: Arthritis, Depression, DM, GERD, High Lipids, HTN, Thyroid, UTI'S Surgical History: Cholecystectomy, , Hysterectomy, Thyroidectomy WAREHOUSE TRAFFIC SUPERVISOR History: Denies all WAREHOUSE TRAFFIC SUPERVISOR Hx Family History Family History: Family hx of heart olman, Family hx of HTN Social History Smoker: Quit Greater Than 1 Year, Other Alcohol: Denies ETOH Use Drugs: Denies Drug Use Lives In: Home Constitutional: denies: chills, diaphoresis, fatigue, fever, malaise, sweats, weakness, others EENTM: denies: blurred vision, double vision, ear bleeding, ear discharge, ear drainage, ear pain, ear ringing, eye pain, eye redness, hearing loss, mouth pain, mouth swelling, nasal discharge, nose bleeding, nose congestion, nose pain, photophobia, tearing, throat pain, throat swelling, voice changes, others Respiratory: denies: cough, hemoptysis, orthopnea, SOB at rest, shortness of breath, SOB with excertion, stridor, wheezing, others Cardiovascular: denies: chest pain, dizzy spells, diaphoresis, Dyspnea on exertion, edema, irregular heart beat, left arm pain, lightheadedness, palpitations, PND, syncope, others Gastrointestinal: denies: abdomen distended, abdominal pain, blood streaked bowels, constipated, diarrhea, dysphagia, difficulty swallowing, hematemesis, melena, nausea, poor appetite, poor fluid intake, rectal bleeding, rectal pain, vomiting, others Genitourinary: denies: abnormal vagina bleeding, burning, dyspareunia, dysuria, flank pain, frequency, hematuria, incontinence, pain, , vagina discharge, urgency, others Neurological: denies: dizziness, fainting, headache, left sided numbness, left sided weakness, numbness, paresthesia, pre-existing deficit, right sided numbness, right sided weakness, seizure, speech problems, tingling, tremors, weakness, others Musculoskeletal: reports: others (Left ankle pain); denies: back pain, gout, joint pain, joint swelling, muscle pain, muscle stiffness, neck pain Integumetry: denies: bruises, change in color, change in hair/nails, dryness, laceration, lesions, lumps, rash, wounds, others Allergic/Immunocompromised: denies: Difficulty Healing, Frequent Infections, Hives, Itching, others Hematologic/Lymphatic: denies: anemia, blood clots, easy bleeding, easy bruising, swollen glands, others Endocrine: denies: excessive hunger, excessive sweating, excessive thirst, excessive urination, flushing, intolerance to cold, intolerance to heat, unexplained weight gain, unexplained weight loss, others Psychiatric: denies: anxiety, bipolar disorder, depression, hopeless, panic disorder, schizophrenia, sleepless, suicidal, others All Other Systems: Reviewed and Negative (Comprehensive review of systems are negative unless stated in HPI) Physical Exam General Appearance: Moderate Distress (Moderate distress due to left ankle pain concerns), Normal HEENT: Normal ENT Inspection, Pharynx Normal, TMs Normal Neck: Full Range of Motion, Non-Tender, Normal, Normal Inspection Respiratory: Chest Non-Tender, Lungs Clear, No Accessory Muscle Use, No Respiratory Distress, Normal Breath Sounds Cardiovascular: No Edema, No JVD, No Murmur, No Gallop, Normal Peripheral Pulses, Regular Rate/Rhythm Breast Exam: Deferred Gastrointestinal: No Organomegaly, Non Tender, No Pulsatile Mass, Normal Bowel Sounds, Soft Genitalia: Deferred Pelvic: Deferred Rectal: Deferred Extremities: Other (Left ankle is diffusely tender to palpation throughout the anterior and lateral aspect. Mild edema noted. Patient can not bear weight. Distal neurovascularly intact.) Neurologic: Alert Cerebellar Function: NOT DONE Reflexes: NOT DONE Skin: Dry, Normal Color, Warm Lymphatic: No Adenopathy Was a procedure done? Was a procedure done?: No Differential Dx Considerations may include: fractures, dislocation, contusions, among others X-Ray, Labs, Meds, VS Vital Signs Date Time Temp Pulse Resp B/P (MAP) Pulse Ox O2 Delivery O2 Flow Rate FiO2 06/25/25 21:02 97.9 76 18 170/76 (107) 97 97.9 06/25/25 21:02 76 18 97 Room Air* 0 21 06/25/25 19:48 97.8 94 16 172/84 97 97.8 X-Ray, Labs, Meds, VS Comment All studies performed in the ED were evaluated by me personally. Imaging studies were not confirmation for a distal fibular fracture. Patient will be provided with a an Titus wrap and crutches and advised to follow up with the primary care provider in the next 4-5 days for re-evaluation and possible repeat imaging. Pain medication as needed and ice therapy. Additionally, patient should discuss improved blood pressure management with her primary care provider. Time of 1ST Reevaluation: 21:05 Reevaluation 1ST: Improved Consultation: PCP Patient Education/Counseling: Diagnosis, Treatment, Need For Follow Up Family Education/Counseling: Diagnosis, Treatment, No Family Present SEPSIS Sepsis Screen Date sepsis recognized/suspect: Jun 25, 2025 Time Sepsis recognized/suspect: 1950 Recent Procedure: No On Antibiotic Therapy: No Respiratory Rate >20: No Heart Rate >90: Yes Temp<36 C (96.8 F) or >38.3 C: No SBP <90 or MAP <65 mmHG: No New Acute Mental Status Change: No Is the patient on CPAP, BIPAP,: No Physician Orders L Ankle 3 View (06/25/25 19:53) Titus Wrap: (06/25/25 20:58) Dme: Crutches (06/25/25 20:58) Vital Signs Date Time Temp Pulse Resp B/P (MAP) Pulse Ox O2 Delivery O2 Flow Rate FiO2 06/25/25 21:02 97.9 76 18 170/76 (107) 97 97.9 06/25/25 21:02 76 18 97 Room Air* 0 21 06/25/25 19:48 97.8 94 16 172/84 97 97.8 Departure 1 Departure Time of Disposition: 21:05 Impression: Primary Impression: Ankle sprain Disposition: HOME / SELF CARE / HOMELESS Condition: Stable Additional Instructions: Advised patient utilize pain medication as needed for symptomatic relief. Patient needs to follow up with the primary care provider in the next 5-7 days for re-evaluation and possible repeat imaging studies. Additionally, patient should have a conversation with the primary care provider about improved management of what is currently not well controlled hypertension. e-Prescriptions Hydrocodone-Acetaminophen (Hydrocodone Bitartrate/AC 5-325 mg) 1 Tab Tab 1 TAB PO Q6HP PRN, #15 TAB Prov: STEPH VERONICA PAC 06/25/25 Ibuprofen (Ibuprofen) 600 Mg Tab 1 TAB PO Q6HP PRN, #30 TAB Prov: STEPH VERONICA PAC 06/25/25 Discharged With: Self, Friend Critical Care Note Critical Care Time?: No Stability Stability form required: No Heart Score Heart Score: Heart Score Response (Comments) Value History N/A 0 EKG N/A 0 Age N/A 0 Risk Factors N/A 0 Troponin N/A 0 Total 0 I personally scribed for STEPH VERONICA PAC ([email or web address]) on 06/25/25 at 20:27. Electronically submitted by Zafar Coppola ([email or web address]). STEPH VERONICA PAC Jun 25, 2025 20:27
--- NOTE | 2025-06-25 20:42 | DVH ---
EXAM: XY L ANKLE 3 VIEW INDICATION: Trauma/twist TECHNIQUE: 3 views of the left ankle COMPARISON: None FINDINGS/IMPRESSION: Question slight cortical irregularity of the anterior aspect of the distal fibula to anterior tibia a nd lateral view correlate with area of point tenderness to exclude underlying fracture. Imaging findi ng may be projectional artifact. Vascular calcifications. Diffusely decreased bone mineral density.
[2025-06-25 21:02] VITALS: BP 170/76; PULSE 76; RESP 18; TEMP 97.9; O2SAT 97
[2025-06-25] MEDS ORDERED: HYDR-4902 PO (21:06)
[2025-06-25] MEDS ORDERED: IBUP-1454 PO (21:06)
== END 2025-06-25 21:08 | disposition home or self-care (01) ==
LOC: ER 19:46
DX: S93.402A Sprain of unspecified ligament of left ankle, initial encounter (principal); F32.A Depression, unspecified; M19.90 Unspecified osteoarthritis, unspecified site; I10 Essential (primary) hypertension; E11.9 Type 2 diabetes mellitus without complications; Z79.899 Other long term (current) drug therapy; Z90.710 Acquired absence of both cervix and uterus; Z88.2 Allergy status to sulfonamides; Z88.0 Allergy status to penicillin; Z79.890 Hormone replacement therapy; Z79.631 Long term (current) use of antimetabolite agent; Z90.49 Acquired absence of other specified parts of digestive tract; Z87.440 Personal history of urinary (tract) infections; Z79.82 Long term (current) use of aspirin; Z88.1 Allergy status to other antibiotic agents; Z88.5 Allergy status to narcotic agent; Z87.891 Personal history of nicotine dependence; X50.1XXA Overexertion from prolonged static or awkward postures, initial encounter; Y93.89 Activity, other specified; Y92.89 Other specified places as the place of occurrence of the external cause; Y99.8 Other external cause status
CPT/HCPCS: 73610